=== PATIENT | female | born 2000 | race Caucasian/White ===

== ENCOUNTER 2021-06-23 15:26 | Inpatient (IN) | payer MEDICAID, SELFPAY ==
[2021-06-23 15:59] VITALS: BP 113/73; PULSE 87; RESP 20; TEMP 36.8; O2SAT 95
[2021-06-23 16:03] VITALS: BP 127/83; PULSE 90; RESP 25; O2SAT 95
--- NOTE | 2021-06-23 16:12 | XRR_ITS ---
PROCEDURE INFORMATION: Exam: XR Chest Exam date and time: 06/23/2021 4:12 PM Age: 21 years old Clinical indication: Shortness of breath; Patient HX: History--sob, low oxygen, cough TECHNIQUE: Imaging protocol: XR of the chest. Views: 1 view. COMPARISON: No relevant prior studies available. FINDINGS: Lungs: There are bilateral patchy alveolar opacities worrisome for pulmonary infection. Findings could represent COVID-19 pneumonia. Correlation with appropriate laboratory findings is suggested. There is no pulmonary vascular congestion. Pleural spaces: Unremarkable. No pleural effusion. No pneumothorax. Heart/Mediastinum: Heart is within normal limits of size. Bones/joints: Unremarkable. XR/XR chest 1V portable [id number] IMPRESSION: Bilateral pneumonia with findings worrisome for COVID-19.
[2021-06-23 18:34] LABS: Hematocrit 35.8 % (37.0-47.0); Hemoglobin 12.1 g/dL (11.5-15.3); Mean Corpuscular HGB Conc 33.8 g/dL (30.0-36.0); Mean Corpuscular Hemoglobin 31.3 pg (28.0-34.0); Mean Corpuscular Volume 92.7 fl (81-99); Mean Platelet Volume 11.5 fL (7.4-10.4); Platelet Count 170 10^3/cmm (130-400); Red Blood Count 3.86 10^6/uL (4.1-5.3); White Blood Count 7.4 10^3/uL (4.0-10.0)
--- NOTE | 2021-06-23 18:49 | W.ED.GENADLT ---
HPI - General Adult General: Chief complaint: Shortness of Breath/Dyspnea Stated complaint: SHALLOW BREATHING/LOW PULSE OX Time Seen by Provider: 06/23/21 17:59 History of Present Illness: HPI narrative: Patient is a 21-year-old female with no significant past medical history presents emergency room with cough generalized weakness fatigue and dyspnea x 1 week. She reports that she may be feeling febrile for the last week and was seen by PCP and was given breathing treatment. Patient was noted to be satting 80% on room air and improved to 94% on arrival. Patient has no history of asthma, history of smoking or COPD. Patient denies any cardiac issues or diabetes. Onset:1 week ago Duration:1 week Location:home Severity:moderate Review of Systems Narrative: Constitutional: No fever, no chills. HEENT: No vision changes CV: No chest pain, no palpitations PULM: +cough, +dyspnea. GI: No abdominal pain, no N/V/D. : No dysuria MSKEL: No muscle pain SKIN: No new rashes, no lesions. NEURO: No headache, no focal weakness. HEME: No visible bruises PSYCH: Normal mood PFSH ED PFSH: Family History Grandmother Diabetes Other Cancer Denies family history of Stroke Social History Smoking and tobacco status: never smoked Alcohol intake: never Household members: family Current occupational status: employed Current occupation: [employer] Physical Exam Narrative: EXAM NARRATIVE: Head: Atraumatic Eyes: PERRL, conjunctiva without injection ENT: Mucous membrane moist NECK: Supple, ROM intact LUNGS: +coarse breath sounds b/l CV: RRR ABDOMEN: Soft, nontender in all quadrants EXTREMITY: Normal ROM SKIN: No rash or erythema NEURO: Awake and alert, no focal motor deficits PSYCH: Normal mood and affect Course Vital Signs: Vital signs: Vital Signs Temperature 98.3 F 06/23/21 15:59 Pulse Rate 90 06/23/21 16:03 Respiratory Rate 25 H 06/23/21 16:03 Blood Pressure 127/83 06/23/21 16:03 Pulse Oximetry 89 L 06/23/21 19:25 MDM - General Adult MDM Narrative: Medical decision making narrative: Patient is a 21-year-old female presenting to the emergency room for evaluation of dyspnea and cough generalized weakness x1 week. Patient was satting at 94% on room air for us in the emergency room. No increased work of breathing. +Coarse breath sounds on lung exam. X-rays consistent with bilateral pneumonia concerning for possible Covid pneumonia. Covid swabs are On reassessment, XR findings of ground-glass opacity. Findings consistent with COVID. Afebrile currently. Patient continues to sat at 95% on 5L oxygen. Given concerns for possible respiratory decompensation, I have offered patient admission for serial/close observation in the emergency room. S/p decadron and remdesivir Disposition: Admission for oxygen support and observation Lab Data: Labs: Lab Results 06/23/21 06/23/21 06/23/21 18:30 18:30 19:00 WBC 7.4 10^3/uL 10^3/ uL (4.0-10.0) RBC 3.86 10^6/uL L 10 ^6/uL (4.1-5.3) Hgb 12.1 g/dL g/dL (11.5-15.3) Hct 35.8 % L % (37.0-47.0) MCV 92.7 fl fl (81-99) MCH 31.3 pg pg (28.0-34.0) MCHC 33.8 g/dL g/dL (30.0-36.0) RDW 12.0 % L % (12.1-15.1) Plt Count 170 10^3/cmm 10^3 /cmm (130-400) MPV 11.5 fL H fL (7.4-10.4) Lymph % (Auto) Not Reportable [place] % (Auto) Not Reportable Lymph # (Auto) Not Reportable [place] # (Auto) Not Reportable Total Counted 100 (0-100) Atypical Lymphs % 0.0 % % (0-5) Absolute Neutrophi ls 6.0 10^3/cmm 10^3 /cmm (1.4-6.5) Segmented Neutroph ils 79 % % Abs Segm Neuts (Ma n) 5.8 10/cmm 10/cmm (1.6-7.1) Band Neutrophils 2.0 % % Abs Band Neuts (Ma n) 0.1 10^3/cmm 10^3 /cmm (0.0-1.2) Absolute Lymphocyt es 0.8 10^3/cmm L 10 ^3/cmm (1.2-3.4) Lymphocytes (Manua [place]) 11 % % Monocytes (Manual) 8.0 % % Absolute Monocytes 0.6 10^3/cmm 10^3 /cmm (0.1-0.6) Eosinophils (Man[place]) 0 % % Absolute Eosinophi ls 0.0 10^3/cmm 10^3 /cmm (0.0-0.7) Basophils (Manual) 0.0 % % Absolute Basophils 0.0 10^3/cmm 10^3 /cmm (0.0-0.2) Platelet Estimate Normal (Normal) Sodium 145 mmol/L mmol/L (136-145) Potassium 4.0 mmol/L mmol/L (3.5-5.1) Chloride 110 mmol/L H mmol /L (98-107) Carbon Dioxide 21 mmol/L L mmol/ L (22-29) Anion Gap 18.0 (5-19) BUN 17 mg/dL mg/dL (6-20) Creatinine 0.7 mg/dL mg/dL (0.5-0.9) GFR Calculation 104.6 mL/min mL/m in (90-130) Glucose 114 mg/dL mg/dL (65-115) Calculated Osmolal ity 302 mOsm/kg H mOs m/kg (285-295) Calcium 8.8 mg/dL mg/dL (8.5-10.5) Total Bilirubin 0.3 mg/dL mg/dL (0.15-1.2) AST 54 U/L H U/L (0-32) ALT 51 U/L H U/L (0-33) Alkaline Phosphata se 64 IU/L IU/L (35-105) Total Protein 7.6 g/dL g/dL (6.6-8.7) Albumin 3.7 g/dL g/dL (3.5-5.2) Globulin 3.9 g/dL g/dL (1.3-4.6) SARS-CoV-2 Ag (Rap id) Positive H (Negative) Imaging Data^: Other Imaging: Radiologist's impression: [facility] [address] [id number] ReportSigned Patient: Saran Zavala #: [id number]: 2000Acct#:[id number]/Sex: 21 / FADM Date: 06/23/21Loc: ERRoom/Bed:Attending Dr: Ordering Provider/Ordering MD: Rosa Lee Date of Service: 06/23/21 Procedure(s): XR chest 1V portable [id number] Accession Number(s): [id number] Report Number: [id number] PROCEDURE INFORMATION: Exam: XR Chest Exam date and time: 06/23/2021 4:12 PM Age: 21 years old Clinical indication: Shortness of breath; Patient HX: History--sob, low oxygen, cough TECHNIQUE: Imaging protocol: XR of the chest. Views: 1 view. COMPARISON: No relevant prior studies available. FINDINGS: Lungs: There are bilateral patchy alveolar opacities worrisome for pulmonary infection. Findings could represent COVID-19 pneumonia. Correlation with appropriate laboratory findings is suggested. There is no pulmonary vascular congestion. Pleural spaces: Unremarkable. No pleural effusion. No pneumothorax. Heart/Mediastinum: Heart is within normal limits of size. Bones/joints: Unremarkable. XR/XR chest 1V portable [id number] IMPRESSION: Bilateral pneumonia with findings worrisome for COVID-19. Dictated By:Roosevelt Sebastianigned By:Leighton Sebastian Date/Time:06/23/21 1731DD/ 1612 Discharge Plan Discharge Patient Disposition: Admitted As Inpatient Clinical Impression: Pneumonia, Cough, Malaise, Dyspnea, Generalized weakness, SARS pneumonia Condition: Stable Discharge Diet: Advance as tolerated Discharge Activity: Resume usual activity Coding Level of Care Code ED Accountant Clerk for [facility]
[2021-06-23 19:05] LABS: Absolute Segmented Neutrophil 5.8 10/cmm (1.6-7.1); Band Neutrophils Absolute 0.1 10^3/cmm (0.0-1.2); Eosinophils 0 %; Lymphocytes 11 %; Lymphocytes Absolute 0.8 10^3/cmm (1.2-3.4); Monocytes Absolute 0.6 10^3/cmm (0.1-0.6); Platelet Estimate Normal (Normal); Segmented Neutrophils 79 %; Total Cells Counted 100 (0-100)
[2021-06-23 19:25] VITALS: O2SAT 85; O2SAT 89
[2021-06-23 19:29] LABS: Alanine Aminotransferase 51 U/L (0-33); Albumin Level 3.7 g/dL (3.5-5.2); Alkaline Phosphatase 64 IU/L (35-105); Aspartate Amino Transferase 54 U/L (0-32); Blood Urea Nitrogen 17 mg/dL (6-20); Calcium 8.8 mg/dL (8.5-10.5); Carbon Dioxide 21 mmol/L (22-29); Chloride 110 mmol/L (98-107); Globulin 3.9 g/dL (1.3-4.6); Glomerular Filtration Rate 104.6 mL/min (90-130); Glucose 114 mg/dL (65-115); Osmolality Calculated 302 mOsm/kg (285-295); Sodium 145 mmol/L (136-145); Total Bilirubin 0.3 mg/dL (0.15-1.2); Total Protein 7.6 g/dL (6.6-8.7)
[2021-06-23 19:46] LABS: SARS Covid-2 Antigen Positive (Negative)
[2021-06-23] MEDS: dexamethasone 10 mg/mL INJ 6 MG IVP (20:05)
--- NOTE | 2021-06-23 20:27 | PM.HP ---
Providers/Chief Complaint Admitting Physician: Aura Mills Primary Care Provider: Holly Coronel NP Chief Complaint: SHALLOW BREATHING/LOW PULSE OX History of Present Illness Andrew Zavala is a 21 year old female who presented to the emergency room with difficulty breathing. About a week ago she had sinus pressure and nasal symptoms and was seen by her primary care provider. Diagnosed with a sinus infection and given a course of Augmentin which she completed today. Today her grandmother noted that she had shallow fast breathing and looks short of breath along with nonproductive cough. Was seen again by primary care provider and found to have low oxygen levels and sent to the emergency room for evaluation. On arrival oxygen saturations were in the 80% on room air, initially was only requiring 2 L of oxygen to maintain saturations greater than 92% but subsequently had oxygen saturations 89% at rest on 2 L and was noted to be dropping to 85% with exertion. She is currently requiring 5 L of oxygen by nasal cannula. No report of any fevers. She does continue to have sinus pressure but denies headaches otherwise. Not having the same degree of nasal congestion. No sore throat. No loss of taste or smell. Does have some general fatigue and weakness. She lives at home with her grandparents and her mother. Her mother was tested for Covid today as well, results are unknown. Her grandfather was hospitalized a couple weeks ago with pneumonia but was Covid negative. She has not received Covid vaccination. Laboratory studies thus far show slight elevation in AST and ALT and leukopenia with positive Covid rapid antigen. Review of Systems Const: Reports: fatigue and malaise; Denies: fever(s), chills or body aches Eyes: Denies: blurry vision ENMT: Reports: nasal congestion and sinus pain; Denies: throat pain, hoarseness or other (loss of taste and smell) Card: Reports: dyspnea on exertion and other (Varicose veins to lower extremity); Denies: chest pain, palpitations or lightheadedness Resp: Reports: dyspnea and non-productive cough; Denies: productive cough, wheezing, pain on inspiration, hemoptysis or chest congestion GI: Reports: nausea, vomiting and diarrhea; Denies: abdominal pain : Denies: difficulty voiding Musc: Reports: other (Still wears her AFO brace and compression stockings for her legs/ankle); Denies: joint pain Skin/Breast: Denies: rash Neuro: Denies: headache(s) (Though has sinus pressure) or confusion Papa/Lymph: Denies: easy bruising or easy bleeding Medications/Allergies Home Medications Medication Instructions Recorded Confirmed Last Taken Type No Known Home Medications 06/23/21 06/23/21 Unknown History Allergies Allergy/AdvReac Type Severity Reaction Status Date / Time No Known Allergies Allergy Verified 06/23/21 16:03 Additional Medication Information Not on any chronic medications Completed a course of Augmentin for sinus infection diagnosis today PFSH Acute PFSH: Medical History (Updated 06/23/21 @ 21:35 by Aura Mills MD) Bilateral bunions Flat feet Mild cognitive disorder Posterior tibial tendon dysfunction, left Surgical History (Updated 06/23/21 @ 20:27 by Aura Mills MD) History of tonsillectomy Family History Grandmother Diabetes Other Cancer Denies family history of Stroke Social History (Updated 06/23/21 @ 21:16 by Aura Mills MD) Smoking and tobacco status: never smoked Alcohol intake: never Substance/Drug Use: never Household members: family Current occupation: [employer] Vitals/I&O/Wt Last Vital Signs Temp 98.3 F 06/23/21 15:59 Pulse 90 06/23/21 16:03 Resp 25 H 06/23/21 16:03 BP 127/83 06/23/21 16:03 Pulse Ox 89 L 06/23/21 19:25 Weight last 48 hrs Weight 115.666 kg Physical Exam Narrative: EXAM NARRATIVE: Constitutional: alert, not acutely ill appearing while lying at rest HEENT: normocephalic, atraumatic, extraocular movements are intact, dry membranes Neck: supple Respiratory: No wheezes, rales or rhonchi, mild tachypnea, no retractions Cardiovascular: regular, no murmurs, no acrocyanosis Abdomen: soft, non tender, positive bowel sounds Extremities: no edema, no cyanosis Skin: dry, no rashes or bruising Neuro: face symmetric, speech clear, moves all extremities Psych: cooperative Data : 06/23/21 18:30 06/23/21 18:30 Other Labs: Laboratory Results WBC 7.4 10^3/uL (4.0-10.0) 06/23/21 18:30 RBC 3.86 10^6/uL (4.1-5.3) L 06/23/21 18:30 Hgb 12.1 g/dL (11.5-15.3) 06/23/21 18:30 Hct 35.8 % (37.0-47.0) L 06/23/21 18:30 MCV 92.7 fl (81-99) 06/23/21 18:30 MCH 31.3 pg (28.0-34.0) 06/23/21 18:30 MCHC 33.8 g/dL (30.0-36.0) 06/23/21 18:30 RDW 12.0 % (12.1-15.1) L 06/23/21 18:30 Plt Count 170 10^3/cmm (130-400) 06/23/21 18:30 MPV 11.5 fL (7.4-10.4) H 06/23/21 18:30 Lymph % (Auto) Not Reportable 06/23/21 18:30 [place] % (Auto) Not Reportable 06/23/21 18:30 Lymph # (Auto) Not Reportable 06/23/21 18:30 [place] # (Auto) Not Reportable 06/23/21 18:30 Total Counted 100 (0-100) 06/23/21 18:30 Atypical Lymphs % 0.0 % (0-5) 06/23/21 18:30 Absolute Neutrophils 6.0 10^3/cmm (1.4-6.5) 06/23/21 18:30 Segmented Neutrophils 79 % 06/23/21 18:30 Abs Segm Neuts (Man) 5.8 10/cmm (1.6-7.1) 06/23/21 18:30 Band Neutrophils 2.0 % 06/23/21 18:30 Abs Band Neuts (Man) 0.1 10^3/cmm (0.0-1.2) 06/23/21 18:30 Absolute Lymphocytes 0.8 10^3/cmm (1.2-3.4) L 06/23/21 18:30 Lymphocytes (Manual) 11 % 06/23/21 18:30 Monocytes (Manual) 8.0 % 06/23/21 18:30 Absolute Monocytes 0.6 10^3/cmm (0.1-0.6) 06/23/21 18:30 Eosinophils (Manual) 0 % 06/23/21 18:30 Absolute Eosinophils 0.0 10^3/cmm (0.0-0.7) 06/23/21 18:30 Basophils (Manual) 0.0 % 06/23/21 18:30 Absolute Basophils 0.0 10^3/cmm (0.0-0.2) 06/23/21 18:30 Platelet Estimate Normal (Normal) 06/23/21 18:30 Sodium 145 mmol/L (136-145) 06/23/21 18:30 Potassium 4.0 mmol/L (3.5-5.1) 06/23/21 18:30 Chloride 110 mmol/L (98-107) H 06/23/21 18:30 Carbon Dioxide 21 mmol/L (22-29) L 06/23/21 18:30 Anion Gap 18.0 (5-19) 06/23/21 18:30 BUN 17 mg/dL (6-20) 06/23/21 18:30 Creatinine 0.7 mg/dL (0.5-0.9) 06/23/21 18:30 GFR Calculation 104.6 mL/min (90-130) 06/23/21 18:30 Glucose 114 mg/dL (65-115) 06/23/21 18:30 Calculated Osmolality 302 mOsm/kg (285-295) H 06/23/21 18:30 Calcium 8.8 mg/dL (8.5-10.5) 06/23/21 18:30 Total Bilirubin 0.3 mg/dL (0.15-1.2) 06/23/21 18:30 AST 54 U/L (0-32) H 06/23/21 18:30 ALT 51 U/L (0-33) H 06/23/21 18:30 Alkaline Phosphatase 64 IU/L (35-105) 06/23/21 18:30 Total Protein 7.6 g/dL (6.6-8.7) 06/23/21 18:30 Albumin 3.7 g/dL (3.5-5.2) 06/23/21 18:30 Globulin 3.9 g/dL (1.3-4.6) 06/23/21 18:30 SARS-CoV-2 Ag (Rapid) Positive (Negative) H 06/23/21 19:00 Impressions Chest X-Ray 06/23/21 16:12 IMPRESSION: Bilateral pneumonia with findings worrisome for COVID-19. A&P Assessment and plan (1) Pneumonia due to COVID-19 virus: Status: Acute (2) Hypoxemia: Both at rest and exertional, currently requiring 5 L by nasal cannula Status: Acute (3) Body mass index (BMI) of 36.0 to 36.9: Status: Acute (4) COVID-19 vaccination not done: Status: Acute Additional A&P Information Inpatient admission Initiate dexamethasone and remdesivir Oxygen therapy as needed to maintain saturations Respiratory therapy to follow Flutter device and incentive spirometer Albuterol inhalers Check baseline inflammatory markers/labs and monitor Blood cultures ordered Vitamin C, vitamin D, zinc Lovenox for DVT prophylaxis Supportive care otherwise Currently anticipate discharge home, possibly with oxygen therapy, however it will ultimately depend on clinical course Findings, concerns and plans, including treatment with Remdesivir were discussed with patient and her grandmother, both were given an opportunity to ask questions which were answered Full code Attestations Medical Necessity Statement*: Anticipate stay greater than 2 midnights in patient with covid, requiring 5 L of oxygen currently to maintain saturations and other care as noted above. Primary risk factor for severe disease is BMI of 36. Baseline inflammatory markers are still pending but given significant oxygen requirement at high risk of potential rapid clinical decline without initiation of treatment and close monitoring initially in the inpatient setting. Coding Level of Care Code Acute Transportation Officer for [facility] Fwd Diagnoses Pneumonia due to COVID-19 virus U07.1; J12.82 Hypoxemia R09.02 Body mass index (BMI) of 36.0 to 36.9 Z68.36 COVID-19 vaccination not done Z28.9
[2021-06-23 21:03] VITALS: BP 132/84; PULSE 74; RESP 32; O2SAT 95
[2021-06-23 21:28] LABS: INR 1.08 (0.8-1.2); Lactic Sepsis W/Reflex 1.4 mmol/L (0.5-2.2)
[2021-06-23 21:29] LABS: Fibrinogen 591 mg/dL (174-498); Partial Thromboplastin Time 33.6 SECONDS (23.9-36.7)
[2021-06-23 21:32] LABS: D Dimer 0.86 ug/mIFEU (0-0.59)
[2021-06-23 21:43] LABS: Troponin T (5th) Once 13 ng/L (0-10)
[2021-06-23 21:50] LABS: NT Pro B Type Natriuretic Pept 214 pg/mL (0-125); Procalcitonin 0.07 ng/mL (0-0.5)
[2021-06-23 22:01] LABS: C Reactive Protein 53.8 mg/L (0.0-4.9); Creatine Phosphokinase 104 U/L (26-192); Lactate Dehydrogenase 436 U/L (135-214)
--- NOTE | 2021-06-23 22:42 | CTR_ITS ---
PROCEDURE INFORMATION: Exam: CTA Chest With Contrast Exam date and time: 06/23/2021 10:42 PM Age: 21 years old Clinical indication: Abnormal findings; Abnormal diagnostic tests; Elevated d-dimer; Shortness of breath; Additional info: Covid elevated ddimer, hypoxemia TECHNIQUE: Imaging protocol: Computed tomographic angiography of the chest with contrast. 3D rendering (Not supervised by radiologist): MIP and/or 3D reconstructed images were created by the technologist. Radiation optimization: All CT scans at this facility use at least one of these dose optimization techniques: automated exposure control; mA and/or kV adjustment per patient size (includes targeted exams where dose is matched to clinical indication); or iterative reconstruction. Contrast material: OMNI 350; Contrast volume: 78 ml; Contrast route: INTRAVENOUS (IV); COMPARISON: CR XR chest 1V portable [id number] 06/23/2021 4:30 PM RADIATION DOSE METRICS: Total DLP (mGy-cm): 549.6 FINDINGS: Pulmonary arteries: There is no evidence of filling defects within the pulmonary arterial circulation to suggest pulmonary embolism. Aorta: There is no thoracic aortic aneurysm or dissection. Lungs: There are extensive ground-glass opacities in both lungs mostly peripheral and rounded fairly typical in appearance and distribution for COVID-19 infection. There also some areas of consolidation within the ground-glass opacities. Pleural spaces: Unremarkable. No pneumothorax. No pleural effusion. Heart: There is a small amount of fluid in the superior pericardial recess. Lymph nodes: There is no evidence of lymphadenopathy. Bones/joints: Unremarkable. No acute fracture. Soft tissues: Unremarkable. CT/CT angio chest PE protcl [id number] IMPRESSION: 1. Commonly reported imaging features of COVID-19 pneumonia are present. Other processes such as influenza pneumonia and organizing pneumonia, as can be seen with drug toxicity and connective tissue disease, can cause a similar imaging pattern. 2. No evidence of pulmonary embolism.
[2021-06-23] MEDS: remdesivir 200 MG in sodium chloride 0.9% (100 ml) 60 ML 100 MG IV (23:00)
[2021-06-23 23:08] LABS: Ferritin 390 ng/mL (15-150)
[2021-06-23 23:33] LABS: HCG, Serum Qual Negative (Negative)
[2021-06-24] VITALS (10 sets, daily range): BP systolic 107–132; BP diastolic 65–84; PULSE 68–78; RESP 18–28; TEMP 36.4–37.3; O2SAT 92–96
[2021-06-24] MEDS: iohexol 350 mg/mL 100 mL Btl IV (00:21)
[2021-06-24] MEDS: enoxaparin 40 mg/0.4 mL Syringe SUBCUT (04:00)
[2021-06-24 04:19] LABS: Hematocrit 34.4 % (37.0-47.0); Lymphocytes # 0.5 10^3/uL (0.8-4.8); Lymphocytes % 15.3 %; Mean Corpuscular Hemoglobin 30.1 pg (28.0-34.0); Mean Platelet Volume 11.3 fL (7.4-10.4); Monocytes # 0.2 10^3/uL (0.2-0.9); Monocytes % 5.1 %; Neutrophils # 2.76 10^3/uL (1.8-7.7); Neutrophils % 77.9 %; Nucleated Red Blood Cells % 0 %; Platelet Count 170 10^3/cmm (130-400); Red Blood Count 3.66 10^6/uL (4.1-5.3); Red Cell Distribution Width 11.9 % (12.1-15.1); White Blood Count 3.5 10^3/uL (4.0-10.0)
[2021-06-24 04:21] LABS: Influenza A by IFA Negative (Negative); Influenza B by IFA Negative (Negative)
[2021-06-24 04:28] LABS: C Reactive Protein 59.6 mg/L (0.0-4.9); Lactate Dehydrogenase 409 U/L (135-214); Troponin T (5th) Once 9 ng/L (0-10)
[2021-06-24 04:29] LABS: Alanine Aminotransferase 48 U/L (0-33); Albumin Level 3.3 g/dL (3.5-5.2); Alkaline Phosphatase 46 IU/L (35-105); Anion Gap 17.4 (5-19); Aspartate Amino Transferase 37 U/L (0-32); Blood Urea Nitrogen 19 mg/dL (6-20); Calcium 8.7 mg/dL (8.5-10.5); Carbon Dioxide 20 mmol/L (22-29); Chloride 112 mmol/L (98-107); Globulin 3.5 g/dL (1.3-4.6); Glucose 161 mg/dL (65-115); Magnesium 2.1 mg/dL (1.7-2.3); Osmolality Calculated 306 mOsm/kg (285-295); Phosphorus 2.9 mg/dL (2.5-4.5); Potassium 4.4 mmol/L (3.5-5.1); Sodium 145 mmol/L (136-145); Total Bilirubin 0.2 mg/dL (0.15-1.2); Total Protein 6.8 g/dL (6.6-8.7)
[2021-06-24 04:46] LABS: Fibrinogen 594 mg/dL (174-498)
[2021-06-24] MEDS: cholecalciferol (vitamin D3) 1,000 unit Tablet 2000 UNIT PO (10:15)
[2021-06-24] MEDS: levofloxacin-dextrose 5 % 750 MG/150 ML PREMIX 100 MG IV (12:04)
[2021-06-24] MEDS: zinc gluconate 50 mg Tablet PO (12:06)
[2021-06-24] MEDS: ascorbic acid 500 mg Tablet 1000 MG PO ×2 (12:07→17:22)
[2021-06-24 14:19] LABS: Coronavirus Test Green County Detected
--- NOTE | 2021-06-24 15:38 | P.PN_ITS ---
Subjective Subjective: Interval history: Seen today in presence of her grandma. Patient and grandma were earlier requesting to go home but after ER discussed with them they decided to stay due to patient desaturating at rest. She has been on 4-5L in ER since admission and was not on any O2 prior. SHe is not vaccinated. Her mother has also been diagnosed with COVID. Grandma has requested to stay here with her. Patient states she feels ok for now but is little bit short of breath. Vitals/I&O/Wt Last Vital Signs Temp 97.5 F L 06/24/21 15:35 Pulse 72 06/24/21 15:35 Resp 21 H 06/24/21 15:35 BP 107/65 06/24/21 15:35 Pulse Ox 93 06/24/21 15:35 06/24/21 06/24/21 06/24/21 06:59 14:59 22:59 Intake Total 60 / 60 150 / 150 Output Total 700 / 700 Balance 60 / 60 150 / 150 -700 / -550 Weight last 48 hrs Weight 116.981 kg Weight 115.666 kg Physical Exam Narrative: EXAM NARRATIVE: General: Alert oriented x3, patient seen at bedside in ER room 7. HEENT: Normocephalic, atraumatic, EOMI, breathing 5L NC at this time, normal respiratory effort. Cardio: Regular rate rhythm, normal S1-S2, no murmurs rubs gallops, Respiratory: Good bilateral air entry, no wheezes no rhonchi appreciated. Lungs very clear to auscultation. GI: Abdomen soft, nontender, nondistended, bowel sounds + Behavior: Appropriate and cooperative Extremities: no edema, no cyanosis Data : 06/24/21 03:51 06/24/21 03:51 Micro: Microbiology 06/23/21 22:01 Blood Culture - Preliminary Blood SPECIMEN COLLECTED 06/23/21 21:58 Blood Culture - Preliminary Blood SPECIMEN COLLECTED A&P Assessment and plan (1) Pneumonia due to COVID-19 virus: Status: Acute (2) Hypoxemia: Both at rest and exertional, currently requiring 5 L by nasal cannula Status: Acute (3) Body mass index (BMI) of 36.0 to 36.9: Status: Acute (4) COVID-19 vaccination not done: Status: Acute Additional A&P Information #COVID 19 PNA, oxygen dependent Continue dexamethasone and remdesivir Continue O2 therapy Incentive spirometer Flutter valve If needed can escalate to high flow NC/bipap. Respiratory therapy to follow. COVID 19 PCR positive, rapid antigen positive as well. Duoneb q4 hours BCx ordered, pending results Vitamin C, Vitamin D, zinc ordered Dimer 0.86. PE ruled out. Ferritin 390 Lovenox for DVT prophylaxis Supportive care otherwise Full Code Grandma will be allowed to visit due to patient's mild intellectual disability (this was discussed by admitting physician with grandma at admission). Attestations Medical Necessity Statement*: > 48 hour stay Coding Level of Care Code Acute Bankruptcy Processor for [facility] Fwd Diagnoses Pneumonia due to COVID-19 virus U07.1; J12.82 Hypoxemia R09.02 Body mass index (BMI) of 36.0 to 36.9 Z68.36 COVID-19 vaccination not done Z28.9
[2021-06-24] MEDS: benzonatate 100 mg Capsule PO (17:27)
[2021-06-24] MEDS: dexamethasone 4 mg/mL INJ 6 MG IVP (21:13)
--- NOTE | 2021-06-24 21:23 | PC.NURSE ---
Shift report received from Sheila BREWER. Patient in bed/ denies pain/discomfort or SOB. Grandmother Bev at bedside. O2 5L NC. No needs voiced at this time. Pharmacy notified at 2114 that Remdesivir not on unit.
[2021-06-24] MEDS: remdesivir 100 MG in sodium chloride 0.9% (100 ml) 100 ML IV (22:20)
[2021-06-25] VITALS (8 sets, daily range): BP systolic 110–129; BP diastolic 64–82; PULSE 66–95; RESP 16–19; TEMP 36.4–37.1; O2SAT 91–97
[2021-06-25] MEDS: enoxaparin 40 mg/0.4 mL Syringe SUBCUT ×2 (00:09→23:31)
[2021-06-25 03:55] LABS: ABG PCO2 34.5 mmHg (35-45); ABG PH Result 7.46 (7.35-7.45); Alveolar-Arterial Oxygen Gradi 2.7 mmHg (5-10); Arterial Blood Gas Hematocrit 36.6 % (37-47); Base Excess ABG 0.8 mmol/L (-2.0-2.0); Blood Gas Allen Test Pos; Blood Gas Sample Site Radial, right; Blood Gas Sample Type Arterial; Carboxyhemoglobin 0.4 %THgb (0.4-20.1); HCO3 ABG 24.4 mmol/L (22-26); HGB O2 Sat 95.5 % (95-100); Ionized Calcium Level - ABG 1.3 mmol/L (1.1-1.4); Methemoglobin 0.3 % (0.4-1.5); Oxygen Device NC; Oxygen Saturation ABG 96.2; PO2 ABG 85.2 mmHg (80.0-100.0); Potassium Level - ABG 3.9 mmol/L (3.5-5.0); Total Hemoglobin 11.9 g/dL (12-16)
[2021-06-25 06:21] LABS: Basophils % 0.2 %; Hematocrit 35.6 % (37.0-47.0); Hemoglobin 11.5 g/dL (11.5-15.3); Lymphocytes # 1.3 10^3/uL (0.8-4.8); Lymphocytes % 12.5 %; Mean Corpuscular HGB Conc 32.3 g/dL (30.0-36.0); Mean Corpuscular Hemoglobin 30.1 pg (28.0-34.0); Mean Corpuscular Volume 93.2 fl (81-99); Monocytes # 0.4 10^3/uL (0.2-0.9); Monocytes % 4.1 %; Neutrophils # 8.48 10^3/uL (1.8-7.7); Neutrophils % 81.7 %; Nucleated Red Blood Cells % 0 %; Platelet Count 261 10^3/cmm (130-400); Red Blood Count 3.82 10^6/uL (4.1-5.3); Red Cell Distribution Width 11.9 % (12.1-15.1); White Blood Count 10.4 10^3/uL (4.0-10.0)
[2021-06-25 06:36] LABS: Anion Gap 17.1 (5-19); Blood Urea Nitrogen 23 mg/dL (6-20); Calcium 8.3 mg/dL (8.5-10.5); Carbon Dioxide 20 mmol/L (22-29); Chloride 111 mmol/L (98-107); Glomerular Filtration Rate 154.3 mL/min (90-130); Glucose 139 mg/dL (65-115); Magnesium 2.1 mg/dL (1.7-2.3); Osmolality Calculated 304 mOsm/kg (285-295); Potassium 4.1 mmol/L (3.5-5.1); Sodium 144 mmol/L (136-145)
[2021-06-25 07:09] LABS: Slide Review Slide Review Perform
[2021-06-25] MEDS: cholecalciferol (vitamin D3) 1,000 unit Tablet 2000 UNIT PO (09:31)
[2021-06-25] MEDS: zinc gluconate 50 mg Tablet PO (09:32)
[2021-06-25] MEDS: ascorbic acid 500 mg Tablet 1000 MG PO ×2 (09:32→18:37)
[2021-06-25 12:00] LABS: Erythrocyte Sedimentation Rate 34 mm/hr (0-15)
--- NOTE | 2021-06-25 12:00 | PM.PN ---
Subjective Subjective: Interval history: Seen this morning. She states she feels a little bit better but does get short of breath when she walks. She is still on 5 L nasal cannula. Grandmother present at bedside. She has been using incentive spirometer and flutter valve as directed. Vitals/I&O/Wt Last Vital Signs Temp 98.7 F 06/25/21 11:38 Pulse 78 06/25/21 11:38 Resp 17 06/25/21 11:38 BP 110/74 06/25/21 11:38 Pulse Ox 97 06/25/21 11:38 06/24/21 06/25/21 06/25/21 22:59 06:59 14:59 Intake Total 480 / 630 600 / 1230 480 / 480 Output Total 700 / 700 Balance -220 / -70 600 / 530 480 / 480 Weight last 48 hrs Weight 116.981 kg Weight 115.666 kg Physical Exam Narrative: EXAM NARRATIVE: General: Alert oriented x3, patient seen at bedside with grandmother present at bedside. HEENT: Normocephalic, atraumatic, EOMI, breathing 5L NC at this time, normal respiratory effort. Cardio: Regular rate rhythm, normal S1-S2, no murmurs rubs gallops, Respiratory: Good bilateral air entry, no wheezes no rhonchi appreciated. Lungs very clear to auscultation. GI: Abdomen soft, nontender, nondistended, bowel sounds + Behavior: Appropriate and cooperative Extremities: no edema, no cyanosis Data : 06/25/21 05:37 06/25/21 05:37 Micro: Microbiology 06/23/21 22:01 Blood Culture - Preliminary Blood NEGATIVE TO DATE 06/23/21 21:58 Blood Culture - Preliminary Blood NEGATIVE TO DATE A&P Assessment and plan (1) Pneumonia due to COVID-19 virus: Status: Acute (2) Hypoxemia: Status: Acute (3) Body mass index (BMI) of 36.0 to 36.9: Status: Acute (4) COVID-19 vaccination not done: Status: Acute Additional A&P Information #COVID 19 PNA, oxygen dependent Continue dexamethasone and remdesivir Continue O2 therapy Incentive spirometer Flutter valve If needed can escalate to high flow NC/bipap. Respiratory therapy to follow. COVID 19 PCR positive, rapid antigen positive as well. Duoneb q4 hours BCx ordered, pending results Vitamin C, Vitamin D, zinc ordered Dimer 0.86. PE ruled out. Ferritin 390 I have told the patient that we will monitor in the hospital for another 48 hours at least to see which direction she is having. If she consistently stays on 5 L nasal cannula for another 2 days we can potentially discharge her home on oxygen. She is agreeable. Lovenox for DVT prophylaxis Supportive care otherwise Full Code Grandma will be allowed to visit due to patient's mild intellectual disability (this was discussed by admitting physician with grandma at admission). Attestations Medical Necessity Statement*: > 48 hours Coding Level of Care Code Acute Cleaning Specialist for [facility] Fwd Diagnoses Pneumonia due to COVID-19 virus U07.1; J12.82 Hypoxemia R09.02 Body mass index (BMI) of 36.0 to 36.9 Z68.36 COVID-19 vaccination not done Z28.9
[2021-06-25] MEDS: levofloxacin-dextrose 5 % 750 MG/150 ML PREMIX 100 MG IV (13:15)
[2021-06-25] MEDS: remdesivir 100 MG in sodium chloride 0.9% (100 ml) 100 ML IV (18:38)
[2021-06-25] MEDS: dexamethasone 4 mg/mL INJ 6 MG IVP (19:28)
--- NOTE | 2021-06-25 19:49 | PC.NURSE ---
Shift report received from Sheila BREWER. Patient awake in bed. Denies pain or discomfort. O2 5L NC. IV patent/SL. Assisted to BR and educated to call staff when ready. No other needs noted at this timel
[2021-06-26] VITALS (8 sets, daily range): BP systolic 118–137; BP diastolic 55–81; PULSE 67–94; RESP 16–19; TEMP 36.3–37.2; O2SAT 94–98
--- NOTE | 2021-06-26 01:46 | PC.NURSE ---
patient resting at this time/ no s/s of pain or discomfort
--- NOTE | 2021-06-26 05:37 | PC.NURSE ---
Patient in bed sleeping. No s/s of pain or discomfort. No needs noted at this time.
[2021-06-26 05:45] LABS: Basophils % 0.1 %; Hematocrit 35.4 % (37.0-47.0); Hemoglobin 11.7 g/dL (11.5-15.3); Lymphocytes # 1.1 10^3/uL (0.8-4.8); Lymphocytes % 11.6 %; Mean Corpuscular HGB Conc 33.1 g/dL (30.0-36.0); Mean Corpuscular Volume 93.7 fl (81-99); Mean Platelet Volume 10.5 fL (7.4-10.4); Monocytes # 0.5 10^3/uL (0.2-0.9); Monocytes % 5.5 %; Neutrophils # 7.73 10^3/uL (1.8-7.7); Neutrophils % 80.4 %; Nucleated Red Blood Cells % 0 %; Platelet Count 276 10^3/cmm (130-400); Red Blood Count 3.78 10^6/uL (4.1-5.3); Red Cell Distribution Width 11.7 % (12.1-15.1); White Blood Count 9.6 10^3/uL (4.0-10.0)
[2021-06-26 06:19] LABS: Anion Gap 10.7 (5-19); Blood Urea Nitrogen 20 mg/dL (6-20); Calcium 8.4 mg/dL (8.5-10.5); Carbon Dioxide 27 mmol/L (22-29); Chloride 111 mmol/L (98-107); Glucose 144 mg/dL (65-115); Magnesium 2.2 mg/dL (1.7-2.3); Osmolality Calculated 303 mOsm/kg (285-295); Potassium 4.7 mmol/L (3.5-5.1); Sodium 144 mmol/L (136-145)
[2021-06-26 07:01] LABS: Slide Review Slide Review Perform
[2021-06-26] MEDS: ascorbic acid 500 mg Tablet 1000 MG PO ×2 (09:25→18:40)
[2021-06-26] MEDS: zinc gluconate 50 mg Tablet PO (09:25)
[2021-06-26] MEDS: cholecalciferol (vitamin D3) 1,000 unit Tablet 2000 UNIT PO (09:25)
[2021-06-26] MEDS: levofloxacin-dextrose 5 % 750 MG/150 ML PREMIX 100 MG IV (11:57)
--- NOTE | 2021-06-26 13:54 | P.PN_ITS ---
Subjective Subjective: Interval history: Patient states that she feels better and when she walks she is less short of breath compared to yesterday. Overall she is improving. Not quite back to baseline yet. She is now on 4 L nasal cannula. Saturating 95 to 96%. No acute events overnight. She offers no complaints this morning. Vitals/I&O/Wt Last Vital Signs Temp 97.6 F 06/26/21 12:00 Pulse 94 06/26/21 12:00 Resp 18 06/26/21 12:00 BP 118/77 06/26/21 12:00 Pulse Ox 96 06/26/21 12:00 06/25/21 06/26/21 06/26/21 22:59 06:59 14:59 Intake Total 730 / 1690 1110 / 1110 Output Total 400 / 400 Balance 330 / 1290 1110 / 1110 Weight last 48 hrs Weight 116.981 kg Physical Exam Narrative: EXAM NARRATIVE: General: Alert oriented x3, patient seen at bedside HEENT: Normocephalic, atraumatic, EOMI, breathing 4L NC at this time, normal respiratory effort. Cardio: Regular rate rhythm, normal S1-S2, no murmurs rubs gallops, Respiratory: Good bilateral air entry, no wheezes no rhonchi appreciated. Lungs very clear to auscultation. GI: Abdomen soft, nontender, nondistended, bowel sounds + Behavior: Appropriate and cooperative Extremities: no edema, no cyanosis Data : 06/26/21 05:31 06/26/21 05:31 A&P Assessment and plan (1) Pneumonia due to COVID-19 virus: Status: Acute (2) Hypoxemia: Both at rest and exertional, currently requiring 5 L by nasal cannula Status: Acute (3) Body mass index (BMI) of 36.0 to 36.9: Status: Acute (4) COVID-19 vaccination not done: Status: Acute Additional A&P Information #COVID 19 PNA, oxygen dependent Continue dexamethasone and remdesivir Continue O2 therapy Incentive spirometer Flutter valve If needed can escalate to high flow NC/bipap. Respiratory therapy to follow. COVID 19 PCR positive, rapid antigen positive as well. Duoneb q4 hours BCx ordered, pending results Vitamin C, Vitamin D, zinc ordered Dimer 0.86. PE ruled out. Ferritin 390 Oxygen down to 4 L nasal cannula today. Further plan is to do home oxygen evaluation tomorrow and see how much she requires. At that point we will determine if she will be allowed to go home or not. We will continue to monitor patient in the hospital. We will continue dexamethasone remdesivir for now. Lovenox for DVT prophylaxis Supportive care otherwise Full Code Tigre will be allowed to visit due to patient's mild intellectual disability (this was discussed by admitting physician with tigre at admission). Attestations Medical Necessity Statement*: Greater than 24-hour stay. Possible potential discharge in a.m. but that might change depending on patient's oxygen status. 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
[2021-06-26] MEDS: dexamethasone 4 mg/mL INJ 6 MG IVP (18:39)
[2021-06-26] MEDS: remdesivir 100 MG in sodium chloride 0.9% (100 ml) 100 ML IV (18:40)
--- NOTE | 2021-06-26 20:09 | PC.NURSE ---
Shift report received from Kymberly BREWER. Patient in bed/ awake. Denies pain or discomfort. 4L NC. IV patent and infusing Remdesivir at this time. No needs voiced at this time.
[2021-06-27] VITALS: BP 124/74; PULSE 83; RESP 17; TEMP 37.1; O2SAT 97
[2021-06-27] MEDS: enoxaparin 40 mg/0.4 mL Syringe SUBCUT (01:08)
[2021-06-27 04:00] VITALS: BP 116/74; PULSE 72; RESP 18; TEMP 37.2; O2SAT 93
[2021-06-27 06:39] LABS: Basophils % 0.3 %; Hematocrit 37.2 % (37.0-47.0); Lymphocytes # 1.3 10^3/uL (0.8-4.8); Lymphocytes % 12.7 %; Mean Corpuscular HGB Conc 32.3 g/dL (30.0-36.0); Mean Corpuscular Hemoglobin 30.5 pg (28.0-34.0); Mean Corpuscular Volume 94.4 fl (81-99); Mean Platelet Volume 10.8 fL (7.4-10.4); Monocytes # 0.7 10^3/uL (0.2-0.9); Monocytes % 6.4 %; Neutrophils # 7.81 10^3/uL (1.8-7.7); Neutrophils % 76.6 %; Nucleated Red Blood Cells % 0 %; Platelet Count 329 10^3/cmm (130-400); Red Blood Count 3.94 10^6/uL (4.1-5.3); Red Cell Distribution Width 11.7 % (12.1-15.1); White Blood Count 10.2 10^3/uL (4.0-10.0)
[2021-06-27 07:11] LABS: Anion Gap 10.3 (5-19); Blood Urea Nitrogen 19 mg/dL (6-20); Calcium 8.1 mg/dL (8.5-10.5); Carbon Dioxide 27 mmol/L (22-29); Chloride 111 mmol/L (98-107); Glomerular Filtration Rate 154.3 mL/min (90-130); Glucose 113 mg/dL (65-115); Magnesium 2.3 mg/dL (1.7-2.3); Osmolality Calculated 301 mOsm/kg (285-295); Potassium 4.3 mmol/L (3.5-5.1); Sodium 144 mmol/L (136-145)
[2021-06-27 07:54] VITALS: BP 143/85; PULSE 75; RESP 18; TEMP 36.4; O2SAT 95
[2021-06-27] MEDS: zinc gluconate 50 mg Tablet PO (09:01)
[2021-06-27] MEDS: cholecalciferol (vitamin D3) 1,000 unit Tablet 2000 UNIT PO (09:01)
[2021-06-27] MEDS: ascorbic acid 500 mg Tablet 1000 MG PO (09:01)
--- NOTE | 2021-06-27 11:45 | PM.DCS ---
Discharge Providers Date of Admission: 06/24/21 05:57 Date of Discharge: June 27, 2021 Attending Provider at Admission: Aura Mills MD Attending Provider at Discharge: Glendy Loomis MD Primary Care Provider: Holly Coronel NP Diagnoses at Discharge Discharge Diagnosis (1) Pneumonia due to COVID-19 virus: Status: Acute (2) Hypoxemia: Status: Acute (3) Body mass index (BMI) of 36.0 to 36.9: Status: Acute (4) COVID-19 vaccination not done: Status: Acute Reason for Visit Reason for Visit: SHALLOW BREATHING/LOW PULSE OX Hospital Course Hospital Course HPI as per Dr. Mills Andrew Zavala is a 21 year old female who presented to the emergency room with difficulty breathing. About a week ago she had sinus pressure and nasal symptoms and was seen by her primary care provider. Diagnosed with a sinus infection and given a course of Augmentin which she completed today. Today her grandmother noted that she had shallow fast breathing and looks short of breath along with nonproductive cough. Was seen again by primary care provider and found to have low oxygen levels and sent to the emergency room for evaluation. On arrival oxygen saturations were in the 80% on room air, initially was only requiring 2 L of oxygen to maintain saturations greater than 92% but subsequently had oxygen saturations 89% at rest on 2 L and was noted to be dropping to 85% with exertion. She is currently requiring 5 L of oxygen by nasal cannula. No report of any fevers. She does continue to have sinus pressure but denies headaches otherwise. Not having the same degree of nasal congestion. No sore throat. No loss of taste or smell. Does have some general fatigue and weakness. She lives at home with her grandparents and her mother. Her mother was tested for Covid today as well, results are unknown. Her grandfather was hospitalized a couple weeks ago with pneumonia but was Covid negative. She has not received Covid vaccination. Laboratory studies thus far show slight elevation in AST and ALT and leukopenia with positive Covid rapid antigen. Course: Patient admitted for covid 19 pneumonia. She was given remdesivir and dexamethasone while inpatient. Patient improved over next few days and discharged home in stable condition on home oxygen. She was encouraged to use incentive spirometer and flutter valve. Please see last progress note for more details. Physical Exam Narrative: EXAM NARRATIVE: General: Alert oriented x3, patient seen at bedside HEENT: Normocephalic, atraumatic, EOMI, breathing 3L NC at this time, normal respiratory effort. Cardio: Regular rate rhythm, normal S1-S2, no murmurs rubs gallops, Respiratory: Good bilateral air entry, no wheezes no rhonchi appreciated. Lungs very clear to auscultation. GI: Abdomen soft, nontender, nondistended, bowel sounds + Behavior: Appropriate and cooperative Extremities: no edema, no cyanosis Discharge Data Data Completed and Pending: Completed Studies During Hospitalization Category Date Time Status CT angio chest PE protcl [id number] Rout ine Cat Scan 06/23/21 22:42 Completed XR chest 1V [place]y ble [id number] Urgent Exams 06/23/21 16:12 Completed Pending at discharge Category Date Time Status Blood Culture Sta t Lab 06/23/21 22:01 Results Labs from last 24 hours 06/27/21 06/27/21 05:55 05:55 WBC 10.2 H RBC 3.94 L Hgb 12.0 Hct 37.2 MCV 94.4 MCH 30.5 MCHC 32.3 RDW 11.7 L Plt Count 329 MPV 10.8 H Neut % (Auto) 76.6 Lymph % (Auto) 12.7 [place] % (Auto) 6.4 Eos % (Auto) 0.0 Baso % (Auto) 0.3 Neut # (Auto) 7.81 H Lymph # (Auto) 1.3 [place] # (Auto) 0.7 Eos # (Auto) 0.0 Baso # (Auto) 0.0 Nucleated RBC % (a uto) 0 Nucleated RBCs # 0.0 Sodium 144 Potassium 4.3 Chloride 111 H Carbon Dioxide 27 Anion Gap 10.3 BUN 19 Creatinine 0.5 GFR Calculation 154.3 H Glucose 113 Calculated Osmolal ity 301 H Calcium 8.1 L Magnesium 2.3 Vitals: Last Vital Signs Temp 97.5 F L 06/27/21 07:54 Pulse 75 06/27/21 07:54 Resp 18 06/27/21 07:54 BP 143/85 06/27/21 07:54 Pulse Ox 95 06/27/21 07:54 Discharge Plan Discharge Patient Disposition: Home Condition: Stable Prescriptions: New benzonatate 100 mg Capsule 100 mg PO TID PRN (Reason: Cough) 14 Days Qty: 30 RF: 0 Ventolin HFA 90 mcg/actuation Hfa Aerosol Inhaler 2 puff inhalation Q4H PRN (Reason: Shortness Of Breath) 14 Days Qty: 8.5 RF: 0 Discharge Orders: Discharge Order (Routine); Ordered 06/27/21 Ordered By: Glendy Loomis Other Ambulatory Orders: DME: Oxygen (Order) Location: None Selected Ordered By: Nadine Rebollar Referrals: Holly Coronel NP [Primary Care Provider] - 07/07/21 11:00 am Discharge Diet: Regular Discharge Activity: Resume usual activity, Increase activity as tolerated and Oxygen as instructed Patient Instructions: Benzonatate (By mouth), Albuterol (By breathing), Prednisone (By mouth), Levofloxacin (By mouth) (Levaquin, Levaquin Leva-hugo), Using Oxygen at Home (DC), Acute Cough (ED), COVID-19 (Coronavirus Disease 2019) (ED), Opioid Safety Activity Restrictions/Additional Instructions: Come back to the emergency room if your symptoms worsen, have any shortness of breath, fever/chills, dehydration, inability tolerate p.o., any difficulty breathing, or any new or concerning complaints. Please return the emergency room if your pulse ox reads less than 88%. Discharge Attestations Time Spent in Discharge Care*: less than 30 min Quality Metrics Clinical Quality Measures During this hospital stay, did patient experience: None Coding Level of Care Code Acute Chg FW DC note Diagnoses Pneumonia due to COVID-19 virus U07.1; J12.82 Hypoxemia R09.02 Body mass index (BMI) of 36.0 to 36.9 Z68.36 COVID-19 vaccination not done Z28.9
[2021-06-27 11:46] VITALS: O2SAT 86; O2SAT 91
[2021-06-27 11:47] VITALS: PULSE 84; RESP 18; O2SAT 91
[2021-06-27 12:00] VITALS: BP 136/80; PULSE 98; RESP 18; TEMP 36.4; O2SAT 97
[2021-06-27] MEDS: levofloxacin-dextrose 5 % 750 MG/150 ML PREMIX 100 MG IV (12:17)
--- NOTE | 2021-06-27 13:28 | PC.NURSE ---
Medications called into [facility] in [place] per Grandmother, Bev, and cancelled from [facility]. Patient has mild cognitive impairment and discharge instructions were reviewed with Grandmother, Bev via phone and she verbalized understanding.
== END 2021-06-27 14:06 | disposition home or self-care (01) | DRG 177 ==
LOC: ER 20:54 → ER IP 06-24 08:30 → MEDSURG 06-24 14:21
PROVIDERS: Physician Assistant; Admitting Provider Hospitalist; Emergency Provider Emergency Medicine; PCP Nurse Practitioner Family; Visit Provider Internal Medicine
DX: U07.1 COVID-19 (principal); J12.82 Pneumonia due to coronavirus disease 2019; R09.02 Hypoxemia; F70 Mild intellectual disabilities; Z68.36 Body mass index [BMI] 36.0-36.9, adult
CPT/HCPCS: 36415; 36600; 71045; 71275; 80048; 80051; 80053; 82330; 82550; 82728; 82805; 83605; 83615; 83735; 83880; 84100; 84145; 84484; 84703; 85007; 85025; 85378; 85384; 85610; 85651; 85730; 86140; 87040; 87426; 87635; 87804; 94664; 96365; 96372; 96375; 99285; J1100; J1650; J1956; Q9967

== ENCOUNTER → 2022-09-09 10:18 | Outpatient (BNVA) | payer MEDICAID, SELFPAY | PROVIDERS: PCP Nurse Practitioner Family; Visit Provider Podiatrist Foot & Ankle Surgery | DX: Q82.8 Other specified congenital malformations of skin (principal); M21.611 Bunion of right foot; M21.612 Bunion of left foot; M21.41 Flat foot [pes planus] (acquired), right foot; M21.42 Flat foot [pes planus] (acquired), left foot | CPT/HCPCS: 17110 ==

== ENCOUNTER → 2022-10-19 09:54 | Outpatient (BNVA) | payer MEDICAID, SELFPAY | PROVIDERS: PCP Nurse Practitioner Family; Visit Provider Podiatrist Foot & Ankle Surgery | DX: Q82.8 Other specified congenital malformations of skin (principal); M21.611 Bunion of right foot; M21.612 Bunion of left foot; M21.41 Flat foot [pes planus] (acquired), right foot; M21.42 Flat foot [pes planus] (acquired), left foot; B07.0 Plantar wart; M25.372 Other instability, left ankle; M76.822 Posterior tibial tendinitis, left leg | CPT/HCPCS: 17110; 99213 ==

== ENCOUNTER → 2022-11-26 13:47 | Outpatient (BNVA) | payer MEDICAID, SELFPAY | PROVIDERS: PCP Nurse Practitioner Family; Visit Provider Podiatrist Foot & Ankle Surgery | DX: M21.611 Bunion of right foot (principal); M21.612 Bunion of left foot; M21.41 Flat foot [pes planus] (acquired), right foot; M21.42 Flat foot [pes planus] (acquired), left foot; M25.372 Other instability, left ankle; M76.822 Posterior tibial tendinitis, left leg | CPT/HCPCS: 99213 ==

== ENCOUNTER 2023-10-12 15:24 | Outpatient (CLI) | payer MEDICARE, MEDICAID, SELFPAY ==
--- NOTE | 2023-10-12 15:31 | XRR_ITS ---
PROCEDURE INFORMATION: Exam: XR Right Ankle Exam date and time: 10/12/2023 3:44 PM Age: 23 years old Clinical indication: Swelling or effusion of joint; Ankle; Additional info: Right ankle swelling TECHNIQUE: Imaging protocol: Radiologic exam of the right ankle. Views: 3 or more views. COMPARISON: No relevant prior studies available. FINDINGS: Bones/joints: Ankle mortise is intact without evidence of acute fracture or subluxation. Soft tissues: Diffuse soft tissue edema. XR/XR ankle RT min 3V* [id number] IMPRESSION: 1. Diffuse soft tissue edema without evidence of acute fracture or subluxation. If there is concern for ligamentous or tendon pathology, follow-up outpatient MRI may be helpful.
== END 2023-10-12 15:25 | disposition home or self-care (01) ==
LOC: RAD 15:26
PROVIDERS: PCP Nurse Practitioner Family; Visit Provider Nurse Practitioner Family
DX: M25.471 Effusion, right ankle (principal)
CPT/HCPCS: 73610

== ENCOUNTER 2024-01-23 12:45 | Emergency (ER) | payer MEDICARE, MEDICAID, SELFPAY ==
[2024-01-23 13:01] VITALS: BP 135/90; PULSE 67; RESP 16; TEMP 36.6; O2SAT 95
--- NOTE | 2024-01-23 13:30 | ED_ITS ---
HPI - Extremity Problem 2 General: Chief complaint: Extremity Problem,Nontraumatic Stated complaint: Right leg/Foot swelling Time Seen by Provider: 01/23/24 13:30 History of Present Illness: 23-year-old female comes in today with i ncreased swelling of the right leg and foot. Patient appears nontoxic. Patient takes 12-1/2 mg of hydrochlorothiazide for blood pressure routinely. Patient has been on the medication for 3 to 4 months to help with the swelling but also has some high blood pressure. 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 Patient is not very mobile. Patient does have a brace to her left lower extremity for mobility and tibial tendon dysfunction. Patient also has mild cognitive disability. Review of Systems 2 General: Reports: 10 or more systems reviewed and unremarkable except in HPI and below Musc: Reports: extremity swelling PFSH ED 2 PFSH: Medical History Bilateral bunions Flat feet Mild cognitive disorder Posterior tibial tendon dysfunction, left Surgical History History of tonsillectomy Family History Grandmother Diabetes Other Cancer Denies family history of Stroke Social History Smoking and tobacco/nicotine status: never used tobacco/nicotine Alcohol intake: never Substance/Drug Use: never Household members: family Current occupation: [employer] Physical Exam 2 Const: COMMON NORMALS: alert HENMT: COMMON NORMALS: normocephalic HEAD & SCALP: normocephalic Neck/C-Spine: COMMON NORMALS: full ROM Resp: COMMON NORMALS: normal respiratory effort and clear to auscultation bilaterally AUSCULTATION: clear to auscultation bilaterally Cardio: COMMON NORMALS: regular rate and regular rhythm RATE: regular rate RHYTHM: regular rhythm GI: COMMON NORMALS: non-tender Back/Pelvis: COMMON NORMALS: thoracic and lumbar spine normal to inspection Extremity: NARRATIVE EXTREMITY EXAM: Edema noted to the right lower extremity. Less edema is noted to the left. Pulses are intact. No significant redness is noted. Patient also has some varicosities. Neuro: SENSORIUM/ORIENTATION: Yes alert Skin: COMMON NORMALS: turgor normal GENERAL SKIN EXAM: turgor normal Course 2 Vital Signs: Vital signs: Vital Signs Temperature 97.9 F 01/23/24 13:01 Pulse Rate 64 01/23/24 13:51 Respiratory Rate 16 01/23/24 13:51 Blood Pressure 144/93 01/23/24 13:51 Pulse Oximetry 94 01/23/24 13:51 Oxygen Delivery Me thod Room Air 01/23/24 13:51 MDM - Extremity (Nontraumatic) Medical Decision Making 23-year-old female comes in today with increased swelling to the right lower extremity. On exam we note varicosities to the right lower leg. Distal pulses intact. Skin is warm and dry. Patient has +2 swelling to right ankle. +1 is noted to the left. No significant redness. No calf pain or popliteal tenderness. Differential diagnosis DVT, dependent edema, lymphedema, varicose veins, peripheral vascular disease, hypertension. Ultrasounds negative for DVT. Laboratory values were unremarkable. Chest x-ray was normal. Believe patient probably has dependent edema. Will give a trial of furosemide 20 mg daily for the next 7 days to see if they would help remove the extra fluid. Reviewed recommendations for trying to elevate feet is much as possible when setting and of course went at home she should definitely elevate at night. Patient reports understanding agreed to plan. Patient's mother also reports understanding. Lab Data 01/23/24 13:46 01/23/24 13:46 Radiology Impressions Chest X-Ray 01/23/24 13:36 IMPRESSION: No acute radiographic findings. Venous Duplex 01/23/24 13:36 IMPRESSION: No sonographic evidence of deep vein thrombosis. Laboratory Results WBC 9.75 10^3/uL (3.29-11.43) 01/23/24 13:46 RBC 4.02 10^6/uL (3.85-5.65) 01/23/24 13:46 Hgb 13.10 g/dL (11.27-16.99) 01/23/24 13:46 Hct 39.7 % (36-47) 01/23/24 13:46 MCV 98.8 fl (85-98) H 01/23/24 13:46 MCH 32.6 pg (27-33) 01/23/24 13:46 MCHC 33.0 g/dL (30-55) 01/23/24 13:46 RDW 12.7 % (12.1-15.1) 01/23/24 13:46 Plt Count 230 10^3/cmm (157-399) 01/23/24 13:46 MPV 9.1 fL (7.4-10.4) 01/23/24 13:46 Neut % (Auto) 73.6 % 01/23/24 13:46 Lymph % (Auto) 16.1 % 01/23/24 13:46 [place] % (Auto) 8.9 % 01/23/24 13:46 Eos % (Auto) 0.6 % 01/23/24 13:46 Baso % (Auto) 0.4 % 01/23/24 13:46 Neut # (Auto) 7.17 10^3/uL (1.8-7.7) 01/23/24 13:46 Lymph # (Auto) 1.6 10^3/uL (0.8-4.8) 01/23/24 13:46 [place] # (Auto) 0.9 10^3/uL (0.2-0.9) 01/23/24 13:46 Eos # (Auto) 0.1 10^3/uL (0.0-0.8) 01/23/24 13:46 Baso # (Auto) 0.0 10^3/uL (0.0-0.1) 01/23/24 13:46 Nucleated RBC % (auto) 0 % 01/23/24 13:46 Nucleated RBCs # 0.0 /100WBC 01/23/24 13:46 Sodium 142 mmol/L (136-145) 01/23/24 13:46 Potassium 3.6 mmol/L (3.5-5.1) 01/23/24 13:46 Chloride 104 mmol/L (98-107) 01/23/24 13:46 Carbon Dioxide 28 mmol/L (22-29) 01/23/24 13:46 Anion Gap 13.6 (5-19) 01/23/24 13:46 BUN 15 mg/dL (6-20) 01/23/24 13:46 Creatinine 0.7 mg/dL (0.5-0.9) 01/23/24 13:46 GFR Calculation 102.8 mL/min (90-130) 01/23/24 13:46 Glucose 86 mg/dL (65-115) 01/23/24 13:46 Calculated Osmolality 294 mOsm/kg (285-295) 01/23/24 13:46 Calcium 9.2 mg/dL (8.5-10.5) 01/23/24 13:46 Total Bilirubin 0.5 mg/dL (0.15-1.2) 01/23/24 13:46 AST 15 U/L (0-32) 01/23/24 13:46 ALT 16 U/L (0-33) 01/23/24 13:46 Alkaline Phosphatase 66 U/L (35-105) 01/23/24 13:46 NT-Pro-B Natriuret Pep 46 pg/mL (0-125) 01/23/24 13:46 Total Protein 7.1 g/dL (6.6-8.7) 01/23/24 13:46 Albumin 4.1 g/dL (3.5-5.2) 01/23/24 13:46 Globulin 3.0 g/dL (1.3-4.6) 01/23/24 13:46 HCG, Qual Negative (Negative) 01/23/24 13:46 All radiology interpretation(s) finalized by discharge EKG Data EKG 1: I personally reviewed and interpreted this EKG as follows: EKG interpretation date: 01/23/24 EKG interpretation time: 13:54 Prior EKG tracings: not available for review Interpretation: EKG shows a normal sinus rhythm with a regular rate at [address] elevation or ectopy is noted. No prior exam was available for comparison. Computer generated interpretation: Sinus rhythm, normal EKG, unconfirmed report. Discharge Plan Discharge Patient Disposition: Home Clinical Impression: Edema, peripheral Condition: Stable Prescriptions: New furosemide 20 mg tablet 20 mg PO DAILY Qty: 7 0RF potassium chloride 10 mEq tablet extended release 10 meq PO DAILY Qty: 7 0RF No Action (DME) Spectrum AFO to left See Rx Instructions .Route .MEDSUPPLY Qty: 1 0RF Rx Instructions: As directed by PATEL&O Discharge Orders: Discharge ED (Routine); Ordered 01/23/24 Ordered By: Lawrence Lantigua Referrals: Holly Coronel NP [Primary Care Provider] - Discharge Diet: Usual diet Discharge Activity: Increase activity as tolerated Patient Instructions: Edema (ED) Activity Restrictions/Additional Instructions: Take diuretic for the next 7 days to help get off extra fluid. Elevate feet is much as possible. Follow-up with primary care in 3 to 5 days for recheck. Return to ED for new concerns such as high fever greater than 100.4, chest pain, or shortness of breath. Stand Alone Forms: Work/School Release Coding Level of Care Code ED Tobacco Stripper Hand for Med Tellez
--- NOTE | 2024-01-23 13:36 | USR_ITS ---
PROCEDURE INFORMATION: Exam: US Duplex Right Lower Extremity Veins, Limited Exam date and time: 01/23/2024 2:03 PM Age: 23 years old Clinical indication: Pain; Leg, lower; Right; Additional info: R/O dvt TECHNIQUE: Imaging protocol: Real-time duplex ultrasound of the right extremity with 2-D buckley scale, color Doppler flow and spectral waveform analysis including responses to compression and other maneuvers (when performed) with image documentation. Limited exam was focused on the right lower extremity veins. COMPARISON: CR XR ankle RT min 3V* [id number] 10/12/2023 3:44 PM FINDINGS: Right deep veins: Unremarkable. The common femoral, femoral, proximal profunda femoral, popliteal and visualized calf veins are patent without thrombus. Normal Doppler waveforms. Normal compressibility and/or augmentation response. Superficial veins: Greater saphenous vein at the saphenofemoral junction is patent without thrombus. Soft tissues: Unremarkable. US/[place] [id number] IMPRESSION: No sonographic evidence of deep vein thrombosis.
--- NOTE | 2024-01-23 13:36 | XRR_ITS ---
PROCEDURE INFORMATION: Exam: XR Chest Exam date and time: 01/23/2024 2:45 PM Age: 23 years old Clinical indication: Dyspnea; Additional info: HTN TECHNIQUE: Imaging protocol: Radiologic exam of the chest. Views: 1 view. COMPARISON: CT angio chest PE protcl [id number] 06/24/2021 12:19 AM FINDINGS: Lungs: Unremarkable. No consolidation. Pleural spaces: Unremarkable. No pleural effusion. No pneumothorax. Heart/Mediastinum: Unremarkable. No cardiomegaly. Bones/joints: Unremarkable. XR/XR chest 1V portable [id number] IMPRESSION: No acute radiographic findings.
--- NOTE | 2024-01-23 13:48 | ECG_ITS ---
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 Measurements Intervals Scroggins Rate: 63 P: 28 MD: 155 QRS: 38 QRSD: 106 T: 46 QT: 405 QTc: 416 Interpretive Statements SINUS RHYTHM No previous ECG available for comparison Electronically Signed On 01-23-2024 19:18:52 CDT by Niko Sawant M.D. [email or web address]
[2024-01-23 13:51] VITALS: BP 144/93; PULSE 64; RESP 16; O2SAT 94
[2024-01-23 13:56] LABS: Basophils % 0.4 %; Eosinophils # 0.1 10^3/uL (0.0-0.8); Eosinophils % 0.6 %; Hematocrit 39.7 % (36-47); Lymphocytes # 1.6 10^3/uL (0.8-4.8); Lymphocytes % 16.1 %; Mean Corpuscular Hemoglobin 32.6 pg (27-33); Mean Corpuscular Volume 98.8 fl (85-98); Mean Platelet Volume 9.1 fL (7.4-10.4); Monocytes # 0.9 10^3/uL (0.2-0.9); Monocytes % 8.9 %; Neutrophils # 7.17 10^3/uL (1.8-7.7); Neutrophils % 73.6 %; Nucleated Red Blood Cells % 0 %; Platelet Count 230 10^3/cmm (157-399); Red Blood Count 4.02 10^6/uL (3.85-5.65); Red Cell Distribution Width 12.7 % (12.1-15.1); White Blood Count 9.75 10^3/uL (3.29-11.43)
[2024-01-23 14:23] LABS: Alanine Aminotransferase 16 U/L (0-33); Albumin Level 4.1 g/dL (3.5-5.2); Alkaline Phosphatase 66 U/L (35-105); Anion Gap 13.6 (5-19); Aspartate Amino Transferase 15 U/L (0-32); Blood Urea Nitrogen 15 mg/dL (6-20); Calcium 9.2 mg/dL (8.5-10.5); Carbon Dioxide 28 mmol/L (22-29); Chloride 104 mmol/L (98-107); Creatinine Clr Calc Pharmacy 179.0834; Glomerular Filtration Rate 102.8 mL/min (90-130); Glucose 86 mg/dL (65-115); NT Pro B Type Natriuretic Pept 46 pg/mL (0-125); Osmolality Calculated 294 mOsm/kg (285-295); Potassium 3.6 mmol/L (3.5-5.1); Sodium 142 mmol/L (136-145); Total Bilirubin 0.5 mg/dL (0.15-1.2); Total Protein 7.1 g/dL (6.6-8.7)
[2024-01-23 14:33] LABS: HCG, Serum Qual Negative (Negative)
[2024-01-23] MEDS: potassium chloride ER 20 mEq Tablet PO (14:52)
[2024-01-23] MEDS: FUROsemide 40 mg Tablet PO (14:52)
== END 2024-01-23 15:19 | disposition home or self-care (01) ==
PROVIDERS: Emergency Provider Nurse Practitioner Family; PCP Nurse Practitioner Family
DX: R60.0 Localized edema (principal)
CPT/HCPCS: 36415; 71045; 80053; 83880; 84703; 85025; 93005; 93971; 99285

== ENCOUNTER 2024-03-24 13:45 | Outpatient (CLI) | payer MEDICARE, MEDICAID, SELFPAY ==
--- NOTE | 2024-03-24 13:49 | US_ITS ---
WS: [id number] US transvaginal [id number] HISTORY: AMENORRHEA COMPARISON: None available. Uterus: 6.3 cm x 3.6 cm x 2.7 cm. Normal size anteverted uterus. No fibroid or mass. Possible fibroid from the fundus measuring 0.6 x 0 .8 x 0.5 cm. Endometrium: 0.6 cm. Normal. Right ovary: 3.6 cm x 3.7 cm x 1.9 cm. RIGHT ovary is poorly visualized. The margins are not well jose ntified. It would be difficult to exclude an abnormality. Left ovary: Not visualized. No free fluid in the cul-de-sac. US/US transvaginal [id number] IMPRESSION: 1. Technically very difficult evaluation of the pelvic structures. 2. Normal endometrium. 3. Small fibroid from the fundus measures 0.6 x 0.8 x 0.5 cm. 4. LEFT ovary is not visualized. 5. The RIGHT ovary is visualized but limited evaluation.
== END 2024-03-24 13:48 | disposition home or self-care (01) ==
PROVIDERS: PCP Nurse Practitioner Family; Visit Provider Nurse Practitioner Family
DX: N91.2 Amenorrhea, unspecified (principal)
CPT/HCPCS: 76830

== ENCOUNTER → 2024-04-26 14:25 | Outpatient (BNVA) | payer MEDICARE, MEDICAID, SELFPAY | PROVIDERS: PCP Nurse Practitioner Family; Referring Provider Nurse Practitioner Family; Visit Provider Nurse Practitioner Family | DX: B07.8 Other viral warts (principal) | CPT/HCPCS: 11900; 99203 ==

== ENCOUNTER → 2024-05-17 13:44 | Outpatient (BNVA) | payer MEDICARE, MEDICAID, SELFPAY | PROVIDERS: PCP Nurse Practitioner Family; Visit Provider Nurse Practitioner Family | DX: B07.8 Other viral warts (principal) | CPT/HCPCS: 11900; 99213 ==

== ENCOUNTER → 2024-06-07 14:33 | Outpatient (BNVA) | payer MEDICARE, MEDICAID, SELFPAY | PROVIDERS: PCP Nurse Practitioner Family; Visit Provider Nurse Practitioner Family | DX: B07.8 Other viral warts (principal) | CPT/HCPCS: 11900; 99213 ==

== ENCOUNTER → 2024-06-28 13:21 | Outpatient (BNVA) | payer MEDICARE, MEDICAID, SELFPAY | PROVIDERS: PCP Nurse Practitioner Family; Visit Provider Nurse Practitioner Family | DX: B07.8 Other viral warts (principal) | CPT/HCPCS: 11900; 99213 ==

== ENCOUNTER → 2024-07-26 15:19 | Outpatient (BNVA) | payer MEDICARE, MEDICAID, SELFPAY | PROVIDERS: PCP Nurse Practitioner Family; Visit Provider Nurse Practitioner Family | DX: B07.8 Other viral warts (principal); D48.5 Neoplasm of uncertain behavior of skin | CPT/HCPCS: 11102; 11900; 99213 ==

== ENCOUNTER → 2024-08-15 14:29 | Outpatient (BNVA) | payer MEDICARE, MEDICAID, SELFPAY | PROVIDERS: PCP Nurse Practitioner Family; Visit Provider Obstetrics & Gynecology | DX: N91.2 Amenorrhea, unspecified (principal) | CPT/HCPCS: 80053; 84146; 84443; 85025 ==

== ENCOUNTER → 2024-10-16 14:42 | Outpatient (BNVA) | payer MEDICARE, MEDICAID, SELFPAY | PROVIDERS: PCP Nurse Practitioner Family; Visit Provider Nurse Practitioner Family | DX: B07.8 Other viral warts (principal) | CPT/HCPCS: 99213 ==

== ENCOUNTER → 2024-10-17 14:09 | Outpatient (BNVA) | payer MEDICARE, MEDICAID, SELFPAY | PROVIDERS: PCP Nurse Practitioner Family; Visit Provider Dermatology | DX: B07.8 Other viral warts (principal); R20.8 Other disturbances of skin sensation; L29.89 Other pruritus; L53.8 Other specified erythematous conditions; D48.5 Neoplasm of uncertain behavior of skin | CPT/HCPCS: 11102; 11306; 99213 ==

== ENCOUNTER 2024-10-27 09:11 | Outpatient (CLI) | payer MEDICARE, MEDICAID, SELFPAY ==
--- NOTE | 2024-10-27 09:16 | US_ITS ---
WS: [id number] RIGHT UPPER QUADRANT ULTRASOUND HISTORY: ABNORMAL LEVELS OF OTHER SERUM ENZYMES COMPARISON: None available. Liver: 16.6 cm in length. Normal size liver. Coarse echotexture with mild heterogeneity. No mass. Suspect there are areas of fatty sparing and and hepatic steatosis. No intrahepatic duct dilatation. Portal Vein: Normal hepatopetal flow with monophasic waveform. Gallbladder: Normally distended gallbladder with numerous stones. No pericholecystic fluid. No gallbladder wall thickening. Several stones extending into the neck of the gallbladder. CBD: 0.2 cm Pancreas: Not visualized due to body habitus. Right kidney: 10.7 cm in length. Normal size and echogenicity. No hydronephrosis or mass. Aorta and IVC: Unremarkable abdominal aorta and IVC. No ascites. US/US abdomen limited [id number] IMPRESSION: 1. Cholelithiasis. Numerous stones present in the gallbladder. Some of the sto jase extend into the neck. No cholelithiasis. Consider surgical evaluation. 2. Mild hepatic steatosis with areas of sparing.
== END 2024-10-27 09:12 | disposition home or self-care (01) ==
PROVIDERS: PCP Nurse Practitioner Family; Visit Provider Nurse Practitioner Family
DX: R74.8 Abnormal levels of other serum enzymes (principal); K80.20 Calculus of gallbladder without cholecystitis without obstruction; K76.0 Fatty (change of) liver, not elsewhere classified
CPT/HCPCS: 76705

== ENCOUNTER → 2024-11-14 15:27 | Outpatient (BNVA) | payer MEDICARE, MEDICAID, SELFPAY | PROVIDERS: PCP Nurse Practitioner Family; Visit Provider Dermatology | DX: B07.8 Other viral warts (principal) | CPT/HCPCS: 11102; 99214 ==

== ENCOUNTER → 2024-11-16 10:50 | Outpatient (BNVA) | payer MEDICARE, MEDICAID, SELFPAY | PROVIDERS: PCP Nurse Practitioner Family; Visit Provider Student in an Organized Health Care Education/Training Program | DX: K82.9 Disease of gallbladder, unspecified (principal) | CPT/HCPCS: 99204 ==

== ENCOUNTER 2024-11-21 14:49 | Outpatient (CLI) | payer OTHER, MEDICAID, SELFPAY ==
--- NOTE | 2024-11-21 15:15 | MR_ITS ---
WS: [id number] MRCP (MAGNETIC RESONANCE CHOLANGIOPANCREATOGRAPHY) HISTORY: Gallstones. COMPARISON: Ultrasound 10/27/2024. TECHNIQUE: Multiple sequences are performed to evaluate the intra and extrahepatic ducts. Gallbladder is mildly contracted around numerous stones within the gallbladder. No pericholecystic fluid. No gallbladder wall thickening is identified. Pancreas is normal with no evidence for acute pancreatitis. Normal common bile duct. No filling defects within the common bile duct. CBD is very small caliber measuring approximately 3 mm. Pancreatic duct is not dilated. No renal obstruction. Mild hepatomegaly with hepatic steatosis. LEFT adrenal mass measures 3.2 x 1.5 cm with dropout of signal on the out of phase imaging consistent with an adenoma. This adenoma was present on a prior CT of 06/24/2021. No ascites or adenopathy. MR/MR MRCP 31110 IMPRESSION: 1. Normal common bile duct. No choledocholithiasis. 2. Stone filled gallbladder without evidence for acute cholecystitis. 3. LEFT adrenal adenoma. 4. Mild hepatic steatosis.
== END 2024-11-21 14:50 | disposition home or self-care (01) ==
LOC: RAD 14:51
PROVIDERS: PCP Nurse Practitioner Family; Visit Provider Student in an Organized Health Care Education/Training Program
DX: K80.20 Calculus of gallbladder without cholecystitis without obstruction (principal); D35.02 Benign neoplasm of left adrenal gland; K76.0 Fatty (change of) liver, not elsewhere classified; R16.0 Hepatomegaly, not elsewhere classified
CPT/HCPCS: 74181

== ENCOUNTER → 2025-01-02 10:49 | Outpatient (BNVA) | payer OTHER, MEDICAID, SELFPAY | PROVIDERS: PCP Nurse Practitioner Family; Visit Provider Dermatology | DX: B07.8 Other viral warts (principal); R20.8 Other disturbances of skin sensation; R23.8 Other skin changes | CPT/HCPCS: 11102; 99214 ==

== ENCOUNTER 2025-02-14 09:08 | Emergency (ER) | payer OTHER, MEDICAID, SELFPAY ==
[2025-02-14 09:19] VITALS: PULSE 87; RESP 18; TEMP 37.2; O2SAT 97
--- OUTSIDE RECORDS SUMMARY | 2025-02-14 09:21 | XMS_ITS | Encounter Summary ---
Author Organization [facility] Address [address] [place] [address] Care Team Providers Care Concrete Carpenter Name Role Phone Summer Solano DO Primary Care Provider Encounter Details Date Type Department Care Team (Latest Contact Info) Description 11/07/2004 Outpatient Historical [facility] [address] [place] [phone] Rodriguez Johnson MD [address] [place] [phone] CHRONIC SINUSITIS NOS (Primary Dx) Social History Tobacco Use Types Packs/Day Years Used Date Smoking Tobacco: Never Assessed Comments Unknown Sex and Gender Information Value Date Recorded Sex Assigned at Not on file 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
--- OUTSIDE RECORDS SUMMARY | 2025-02-14 09:21 | XMS_ITS | Encounter Summary ---
Author Organization [facility] Address [address] [place] [address] Care Team Providers Care Senior Data Analyst Name Role Phone Summer Solano DO Primary Care Provider Encounter Details Date Type Department Care Team (Latest Contact Info) Description 06/10/2004 Outpatient Historical [facility] Medicine- [place] [address] [place] [address] Rodriguez Johnson MD [address] [place] [phone] ACUTE PHARYNGITIS (Primary Dx) Social History Tobacco Use Types Packs/Day Years Used Date Smoking Tobacco: Never Assessed Comments Unknown Sex and Gender Information Value Date Recorded Sex Assigned at Not on file Legal Sex Female 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
--- OUTSIDE RECORDS SUMMARY | 2025-02-14 09:21 | XMS_ITS | Encounter Summary ---
Author Organization [facility] Address [address] [place] [address] Care Team Providers Care Racker Octave Board Name Role Phone Summer Solano DO Primary Care Provider Encounter Details Date Type Department Care Team (Latest Contact Info) Description 11/27/[address] 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
--- OUTSIDE RECORDS SUMMARY | 2025-02-14 09:21 | XMS_ITS | Encounter Summary ---
Author Organization [facility] Address [address] [place] [address] Care Team Providers Care Clinical Fellow Name Role Phone Summer Solano DO Primary Care Provider Encounter Details Date Type Department Care Team (Latest Contact Info) Description 06/04/2005 Outpatient Historical [facility] [place] [address] [place] [address] Rodriguez Johnson MD [address] [place] [phone] CONJUNCTIVITIS NOS (Primary Dx) Social History Tobacco Use Types Packs/Day Years Used Date Smoking Tobacco: Never Assessed Comments Unknown Sex and Gender Information Value Date Recorded Sex Assigned at Not on file Legal Sex Female 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
--- OUTSIDE RECORDS SUMMARY | 2025-02-14 09:21 | XMS_ITS | Clinical Summary ---
Author Organization [facility] Address [address] [place] [address] Care Team Providers Care Continuous Improvement Analyst Name Role Phone Summer Solano Johann FLORES Primary Care Provider Allergies No known active allergies Medications chlorpheniramin e-phenylephrine SA ([facility]) 4.5-5 mg/5 mL Oral SuspIndications :Acute URI Take 5 mL by mouth every 12 hours. 120 mL 0 1 Active antipyrine-eva ocaine (AURODEX) 5.4-1.4 % OT DropIndications :Acute serous otitis media Administer 3 Drops in left ear every 3 hours as needed for Pain. 1 Bottle 0 1 Active Active Problems Problem Noted Date Diagnosed Date Mental retardation Family History Medical History Relation Name Comments High Cholesterol Maternal Grandfather Hypertension Maternal Grandfather High Cholesterol Maternal Grandmother Hypertension Maternal Grandmother Mental Retardation Mother Relation Name Status Comments Father Unknown Maternal Grandfather Alive Maternal Grandmother Alive Mother Alive Social History Tobacco Use Types Packs/Day Years Used Date Smoking Tobacco: Never Alcohol Use Standard Drinks/Week Comments Not Asked 0 (1 standard drink = 0.6 oz pur e alcohol) Comments No Sex and Gender Information Value Date Recorded Sex Assigned at Not on file Legal Sex Female 3:12 AM BODY STYLIST Gender Identity Not on file Sexual Orientation Not on file Occupation Industry Job Start Date Job End Date Student Not on file Not on file Not on file Last Filed Vital Signs Vital Sign Reading Time Taken Comments Blood Pressure - - Pulse 100 10/24/2010 10:38 AM CDT Temperature 36.3 C (97.4 F) 10/24/2010 10:38 AM CDT Respiratory Rate 20 10/24/2010 10:38 AM CDT Oxygen Saturation - - Inhaled Oxygen Concentration - - Weight 78 kg (172 lb) 10/24/2010 10:38 AM CDT Height 167.6 cm (5' 6 ) 10/24/2010 10:38 AM CDT Body Mass Index 27.76 10/24/2010 10:38 AM CDT Plan of Treatment Health Maintenance Due Date Last Done Comments HPV VACCINES (1 - 3-dose series) 2014 DTAP/TDAP/TD VACCINES (1 - Tdap) 2018 HEPATITIS B VACCINES (1 of 3 - 19+ 3-dose series) 02/17 Preventative Visit-Managed Medicaid 2018 CERVICAL CANCER SCREENING 2020 HPV/Cotest (-) 2020 PAP SMEAR 2020 INFLUENZA VACCINE (#1) 2025 [place] Care Teams Continuous Improvement Analyst Relationship Specialty Start Date End Date Summer Solano DO [address] [place] [address] PCP - General Family Practice 10/24/10
--- OUTSIDE RECORDS SUMMARY | 2025-02-14 09:21 | XMS_ITS | Encounter Summary ---
Author Organization [facility] Address [address] [place] [address] Care Team Providers Care Facilities Director Name Role Phone Summer Solano DO Primary Care Provider [phone] Encounter Details Date Type Department Care Team (Latest Contact Info) Description 12/08/2004 Outpatient Historical [facility] Ear, Nose and Throat [address] 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
--- OUTSIDE RECORDS SUMMARY | 2025-02-14 09:21 | XMS_ITS | Encounter Summary ---
Author Organization [facility] Address [address] [place] [address] Care Team Providers Care Marking Machine Operator Name Role Phone Summer Solano DO Primary Care Provider Encounter Details Date Type Department Care Team (Latest Contact Info) Description 06/18/2004 Outpatient Historical [facility] Medicine- [place] [address] [place] [address] Rodriguez Johnson MD [address] [place] [phone] ACUTE PHARYNGITIS (Primary Dx) Social History Tobacco Use Types Packs/Day Years Used Date Smoking Tobacco: Never Assessed Comments Unknown Sex and Gender Information Value Date Recorded Sex Assigned at Not on file Legal Sex Female 3:12 AM DIRECTOR OF APPLICATION DEVELOPMENT Gender Identity Not on file Sexual Orientation Not on file documented as of this encounter Plan of Treatment Not on file documented as of this encounter Visit Diagnoses Diagnosis Acute pharyngitis- Primary documented in this encounter Care Teams Marking Machine Operator Relationship Specialty Start Date End Date Summer Solano DO [address] [place] [address] PCP - General Family Practice 10/24/10 documented as of this encounter
--- OUTSIDE RECORDS SUMMARY | 2025-02-14 09:21 | XMS_ITS | Encounter Summary ---
Author Organization [facility] Address [address] [place] [address] Care Team Providers Care Research Program Intern Name Role Phone Summer Solano DO Primary Care Provider Encounter Details Date Type Department Care Team (Latest Contact Info) Description 12/17/2004 Outpatient Historical [facility] Head and Neck Surgery-[address] [place] [address] [place] [phone] Tod Chambers MD [address] [place] [address] CHRONIC TONSILLITIS (Primary Dx); RESP SYSTEM DISEASE NEC Social History Tobacco Use Types Packs/Day Years Used Date Smoking Tobacco: Never Assessed Comments Unknown Sex and Gender Information Value Date Recorded Sex Assigned at Not on file Legal Sex Female 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
--- OUTSIDE RECORDS SUMMARY | 2025-02-14 09:21 | XMS_ITS | Clinical Summary ---
Author Organization [facility] Address [address] [place]: [place] [address] Care Team Providers Care Underground Miner Name Role Phone Summer Solano Primary Care Provider Allergies No known active allergies Active Problems Problem Noted Date Diagnosed Date Mental retardation Encounters Date Type Department Care Team Description 01/31/2025 External Device Data STL ABSTRACTION Provider, Abstract 01/30/2025 External Device Data ST[place] ABSTRACTION Provider, Abstract 01/02/2025 External Device Data [place] ABSTRACTION Provider, Abstract 12/07/2024 External Device Data [place] ABSTRACTION Provider, Abstract 12/07/2024 External Device Data [place] ABSTRACTION Provider, Abstract 12/07/2024 External Device Data ST[place] ABSTRACTION Provider, Abstract 12/06/2024 External Device Data ST[place] ABSTRACTION Provider, Abstract 12/05/2024 External Device Data STL ABSTRACTION Provider, Abstract from Last 3 Months Family History Medical History Relation Name Comments [...] = 0.6 oz pur e alcohol) Comments Unknown Sex and Gender Information Value Date Recorded Sex Assigned at Not on file Legal Sex Female 4:02 PM FILM ARCHIVIST Gender Identity Not on file Sexual Orientation Not on file Plan of Treatment Health Maintenance Due Date Last Done Comments HPV VACCINES (1 - 3-dose series) 2014 DTAP/TDAP/TD VACCINES (1 - Tdap) 2018 HEPATITIS B VACCINES (1 of 3 - 19+ 3-dose series) 02/17 Preventative Visit-Managed Medicaid 2018 CERVICAL CANCER SCREENING 2020 HPV/Cotest (21-29) 2020 PAP SMEAR 2020 INFLUENZA VACCINE (#1) [address] [place] [address] MEDICAID [place] Care Teams Underground Miner Relationship Specialty Start Date End Date Summer Solano DO [address] [place] [address] PCP - General Family Practice 10/24/10
--- OUTSIDE RECORDS SUMMARY | 2025-02-14 09:21 | XMS_ITS | Encounter Summary ---
Author Organization [facility] Address [address] [place] [address] Care Team Providers Care Internal Grinder Name Role Phone Summer Solano DO Primary Care Provider [phone] Encounter Details Date Type Department Care Team (Latest Contact Info) Description 12/17/2004 Outpatient Historical [facility] Ear, Nose and Throat 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
--- NOTE | 2025-02-14 09:47 | XR_ITS ---
WS: [id number] Sacrum and coccyx, 3 views, 02/14/2025 Clinical Data: trauma Comparison: None. Findings: No fractures or dislocations are seen. The SI joints and pubic symphysis are unremarkable. No bone destruction or erosion is seen. The bladder is full. XR/XR sacrum coccyx min 2V [id number] Impression: Negative sacrum and coccyx.
--- NOTE | 2025-02-14 09:49 | ED_ITS ---
HPI - Fall 2 General: Chief Complaint: Fall Stated Complaint: falls Time Seen by Provider: 02/14/25 09:13 History of Present Illness: 24-year-old female who presents to the E D after a fall that occurred last night. Family in the room reports patient has mild cognitive delay but is able to have a conversation. Patient states that she experienced weakness in her legs which caused her to fall last night. She was alone and therefore was on the ground for about an hour. She reports of to her tailbone and states that she had a similar fall 2 weeks ago in which she also landed on her tailbone. She states she is currently being worked up by her PCP for her weakness that she has been experiencing over the last several months. Denies hitting her head, LOC, or pain anywhere else. No other complaints at this time. Associated symptoms-after fall: Denies abdominal pain, chest pain, headache(s) or neck pain Related Data Home Medications ?Medication ?Instructions ?Recorded ?Confirmed citalopram 10 mg tablet 10 mg PO DAILY 02/14/2501/18 metoprolol succinate 25 mg 25 mg PO DAILY 02/14/25 tablet,extended release 24 hr potassium chloride 20 mEq 20 meq PO BID 02/14/2502/14 tablet,extended release(part/cryst) Previous Rx's ?Medication ?Instructions ?Recorded Spectrum AFO to left #1 ea 10/19/22 furosemide 20 mg tablet 20 mg PO DAILY #7 tabs 01/22 desogestrel 0.15 mg-ethinyl 1 tab PO DAILY #84 tabs estradiol 0.03 mg tablet (Cyred) Allergies Allergy/AdvReac Type Severity Reaction Status Date / Time No Known Allergies Allergy Verified 11/16/24 10:55 Review of Systems 2 Const: Denies: fever(s) or chills Card: Denies: chest pain or palpitations Resp: Denies: dyspnea or non-productive cough GI: Denies: abdominal pain, nausea or vomiting : Denies: flank pain, difficulty voiding or dysuria Musc: Reports: other (Pain to tailbone); Denies: neck pain or back pain Neuro: Reports: weakness in extremities and frequent falls; Denies: headache(s) or dizziness PFSH ED 2 PFSH: Medical History Mild cognitive disorder Flat feet Bilateral bunions Posterior tibial tendon dysfunction, left Surgical History History of tonsillectomy Family History Grandmother Diabetes Heart disease Hypertension Denies family history of Colon cancer Ovarian cancer Prostate cancer Breast cancer Uterine cancer Thyroid disease Stroke Social History Smoking and tobacco/nicotine status: never used tobacco/nicotine Current occupation: [employer] Physical Exam 2 Const: COMMON NORMALS: no acute distress GENERAL APPEARANCE: cooperative and comfortable ORIENTATION/CONSCIOUSNESS: Yes awake, Yes oriented to person, Yes oriented to place and Yes oriented to time HENMT: COMMON NORMALS: normocephalic, atraumatic and hearing grossly normal bilaterally HEAD & SCALP: normocephalic and atraumatic Resp: COMMON NORMALS: normal respiratory effort, No retractions, No use of accessory muscles and clear to auscultation bilaterally AUSCULTATION: clear to auscultation bilaterally Cardio: COMMON NORMALS: regular rate, regular rhythm and No murmurs present (Cardio) RATE: regular rate RHYTHM: regular rhythm GI: COMMON NORMALS: Soft to palpation and No hepatosplenomegaly present A USCULTATION: Yes normoactive bowel sounds PALPATION: Yes Soft to palpation, No Tenderness to palpation present (GI), No Guarding due to palpation present (GI) and Yes No hepatosplenomegaly present Back/Pelvis: OTHER: Tender over the sacrum Extremity: COMMON NORMALS: normal to inspection, capillary refill normal, no clubbing, cyanosis or edema, no calf tenderness and no pedal edema Neuro: SENSORIUM/ORIENTATION: Yes oriented to person, Yes oriented to place and Yes oriented to time Skin: COMMON NORMALS: no rashes or lesions noted GENERAL SKIN EXAM: no rashes or lesions noted Course 2 Vital Signs: Vital signs: Vital Signs Temperature 98.9 F 02/14/25 09:19 Pulse Rate 58 L 02/14/25 12:56 Respiratory Rate 16 02/14/25 11:58 Blood Pressure 159/104 02/14/25 12:56 Pulse Oximetry 98 02/14/25 12:56 Oxygen Delivery Me thod Room Air 02/14/25 11:58 MDM - Fall Medical Decision Making No acute fracture ambulated well. No concerns with gait. Caregiver with the patient states she has been falling more frequently last few months. They have seen her primary care they have done some endocrine evaluation but have not found anything definitive. At this point patient has no emergent condition. Will discharge her home she otherwise states she is feeling fine beyond the tailbone pain. She does have a mildly elevated sodium that should be rechecked sometime in the next week. Will discharge her home made a referral with case management to neurology for her frequent falls. Medical Records I reviewed the patient's medical records. Lab Data I reviewed the patient's lab results. 02/14/25 09:51 02/14/25 09:51 Radiology Impressions Sacrum and Coccyx X-Ray 02/14/25 09:47 Impression: Negative sacrum and coccyx. Head CT 02/14/25 11:50 IMPRESSION: 1. No evidence of intracranial hemorrhage or mass effect. 2. No acute intracranial findings. Laboratory Results WBC 12.17 10^3/uL (3.29-11.43) H 02/14/25 09:51 RBC 3.77 10^6/uL (3.85-5.65) L 02/14/25 09:51 Hgb 12.20 g/dL (11.27-16.99) 02/14/25 09:51 Hct 37.9 % (36-47) 02/14/25 09:51 MCV 100.5 fl (85-98) H 02/14/25 09:51 MCH 32.4 pg (27-33) 02/14/25 09:51 MCHC 32.2 g/dL (30-55) 02/14/25 09:51 RDW 13.6 % (12.1-15.1) 02/14/25 09:51 Plt Count 214 10^3/cmm (157-399) 02/14/25 09:51 MPV 8.8 fL (7.4-10.4) 02/14/25 09:51 Neut % (Auto) 81.6 % 02/14/25 09:51 Lymph % (Auto) 8.5 % 02/14/25 09:51 [place] % (Auto) 8.3 % 02/14/25 09:51 Eos % (Auto) 0.1 % 02/14/25 09:51 Baso % (Auto) 0.2 % 02/14/25 09:51 Neut # (Auto) 9.93 10^3/uL (1.8-7.7) H 02/14/25 09:51 Lymph # (Auto) 1.0 10^3/uL (0.8-4.8) 02/14/25 09:51 [place] # (Auto) 1.0 10^3/uL (0.2-0.9) H 02/14/25 09:51 Eos # (Auto) 0.0 10^3/uL (0.0-0.8) 02/14/25 09:51 Baso # (Auto) 0.0 10^3/uL (0.0-0.1) 02/14/25 09:51 Nucleated RBC % (auto) 0 % 02/14/25 09:51 Nucleated RBCs # 0.0 /100WBC 02/14/25 09:51 Sodium 149 mmol/L (136-145) H 02/14/25 09:51 Potassium 3.5 mmol/L (3.5-5.1) 02/14/25 09:51 Chloride 109 mmol/L (98-107) H 02/14/25 09:51 Carbon Dioxide 31 mmol/L (22-29) H 02/14/25 09:51 Anion Gap 12.5 (5-19) 02/14/25 09:51 BUN 12 mg/dL (6-20) 02/14/25 09:51 Creatinine 0.7 mg/dL (0.5-0.9) 02/14/25 09:51 GFR Calculation 102.0 mL/min (90-130) 02/14/25 09:51 Glucose 92 mg/dL (65-115) 02/14/25 09:51 Calculated Osmolality 307 mOsm/kg (285-295) H 02/14/25 09:51 Calcium 9.1 mg/dL (8.5-10.5) 02/14/25 09:51 Total Bilirubin 0.6 mg/dL (0.15-1.2) 02/14/25 09:51 AST 23 U/L (0-32) 02/14/25 09:51 ALT 54 U/L (0-33) H 02/14/25 09:51 Alkaline Phosphatase 193 U/L (35-105) H 02/14/25 09:51 Total Protein 6.4 g/dL (6.6-8.7) L 02/14/25 09:51 Albumin 3.7 g/dL (3.5-5.2) 02/14/25 09:51 Globulin 2.7 g/dL (1.3-4.6) 02/14/25 09:51 HCG, Qual Negative (Negative) 02/14/25 09:51 Urine Color Yellow (Yellow) 02/14/25 10:31 Urine Appearance Clear (CLEAR) 02/14/25 10:31 Urine pH 7.0 (5-7) 02/14/25 10:31 Ur Specific [place] 1.014 (1.005-1.030) 02/14/25 10:31 Urine Protein Negative (Negative) 02/14/25 10:31 Urine Glucose (UA) Negative (Normal) 02/14/25 10:31 Urine Ketones Negative (Negative) 02/14/25 10:31 Urine Blood Negative (Negative) 02/14/25 10:31 Urine Nitrate Negative (Negative) 02/14/25 10:31 Urine Bilirubin Negative (Negative) 02/14/25 10:31 Urine Urobilinogen 0.2 mg/dL (Negative) 02/14/25 10:31 Ur Leukocyte Esterase Negative (Negative) 02/14/25 10:31 Urine RBC 0-2 /hpf (0-2) 02/14/25 10:31 Urine WBC 0-5 /hpf (0-5) 02/14/25 10:31 Ur Squamous Epith Cells 0-5 /hpf (0-5) 02/14/25 10:31 Amorphous Sediment Not Reportable 02/14/25 10:31 Urine Bacteria None seen /hpf (NONE) 02/14/25 10:31 Hyaline Casts 1.21 /lpf 02/14/25 10:31 All radiology interpretation(s) finalized by discharge Discharge Plan Discharge Patient Disposition: Home Clinical Impression: Frequent falls, Coccygeal pain, acute Condition: Stable Prescriptions: No Action (DME) Spectrum AFO to left See Rx Instructions .Route .MEDSUPPLY Qty: 1 0RF Rx Instructions: As directed by PATEL&O desogestrel-ethinyl estradiol [Cyred] 0.15-0.03 mg tablet 1 tab PO DAILY Qty: 84 3RF furosemide 20 mg tablet 20 mg PO DAILY Qty: 7 0RF citalopram 10 mg tablet 10 mg PO DAILY potassium chloride 20 mEq tablet,ER particles/crystals 20 meq PO BID metoprolol succinate 25 mg tablet extended release 24 hr 25 mg PO DAILY Discharge Orders: Discharge ED (Routine); Ordered 02/14/25 Ordered By: Amari Zaragoza Referrals: Holly Coronel NP [Primary Care Provider, Unknown] Discharge Diet: Usual diet Discharge Activity: Increase activity as tolerated Patient Instructions: Opioid Safety, Pain Management, Patient Portal & Judi Instructions Activity Restrictions/Additional Instructions: Thank you for choosing [facility] for your healthcare needs today. It is very important that you follow up as instructed or that you return to the Emergency Department should you have concerns or if your condition changes or worsens in any way. You were seen in the emergency room after a fall. X-ray did not show any fracture of the coccyx. Laboratory work done shows mild elevation of white count likely secondary to the fall. Other labs generally unremarkable. I do recommend that you follow-up with neurology given your complaint of frequent falls. Case management will make a referral. Print Language: Hebrew Coding Level of Care Code ED Industrial Cleaning Technician for Med Tellez
--- NOTE | 2025-02-14 10:00 | ECG_ITS ---
[facility]: [facility]25[facility]02[facility]14 Pat Name: Andrew Zavala Department: Room: Gender: Female Shaper Machine Hand: : 2000 Requested By: Amari Wills Order Number: [id number] Yong MD: Niko Sawant M.D. Measurements Intervals [place] Rate: 59 P: 39 PA: 135 QRS: 38 QRSD: 84 T: 64 QT: 405 QTc: 402 Interpretive Statements SINUS BRADYCARDIA Compared to ECG 01/23/2024 13:48:14 Sinus rhythm no longer present Electronically Signed On 02-15-2025 10:24:27 CDT by Niko Sawant M.D. [email or web address]
[2025-02-14 10:05] LABS: Hematocrit 37.9 % (36-47); Hemoglobin 12.20 g/dL (11.27-16.99); Mean Corpuscular HGB Conc 32.2 g/dL (30-55); Mean Corpuscular Hemoglobin 32.4 pg (27-33); Mean Corpuscular Volume 100.5 fl (85-98); Nucleated Red Blood Cells % 0 %; Platelet Count 214 10^3/cmm (157-399); Red Blood Count 3.77 10^6/uL (3.85-5.65); White Blood Count 12.17 10^3/uL (3.29-11.43)
[2025-02-14 10:24] LABS: Alanine Aminotransferase 54 U/L (0-33); Albumin Level 3.7 g/dL (3.5-5.2); Alkaline Phosphatase 193 U/L (35-105); Anion Gap 12.5 (5-19); Aspartate Amino Transferase 23 U/L (0-32); Blood Urea Nitrogen 12 mg/dL (6-20); Calcium 9.1 mg/dL (8.5-10.5); Carbon Dioxide 31 mmol/L (22-29); Chloride 109 mmol/L (98-107); Creatinine Clr Calc Pharmacy 177.5396; Globulin 2.7 g/dL (1.3-4.6); Glucose 92 mg/dL (65-115); Osmolality Calculated 307 mOsm/kg (285-295); Potassium 3.5 mmol/L (3.5-5.1); Sodium 149 mmol/L (136-145); Total Protein 6.4 g/dL (6.6-8.7)
[2025-02-14 10:40] LABS: Glucose Urine UA Negative (Normal); Nitrate Urine Negative (Negative); Specific Gravity, Urine 1.014 (1.005-1.030)
[2025-02-14 10:45] LABS: Add Urine Microscopic? YES
[2025-02-14 10:51] LABS: HCG, Serum Qual Negative (Negative)
--- NOTE | 2025-02-14 11:50 | CT_ITS ---
WS: [id number] CT HEAD TECHNIQUE: Noncontrast CT of the head obtained from the skullbase to the vertex. CLINICAL INFORMATION: falls COMPARISON: None. DLP: 1205.[address] scans at [facility] use at least one of these dose optimization techniques: automated exposure control; mA and/or kV adjustment per patient size (includes targeted exams where dose is matched to clinical indication); or iterative reconstruction. FINDINGS: No evidence of intracranial hemorrhage or mass effect. Ventricular system and basal cisterns are patent. No extra-axial fluid collections. No evidence of mass or mass effect. Normal buckley-white differentiation. Paranasal sinuses and mastoid air cells are well aerated. .Normal visualized soft tissues. CT/CT head wo con* [id number] IMPRESSION: 1. No evidence of intracranial hemorrhage or mass effect. 2. No acute intracranial findings.
[2025-02-14 11:58] VITALS: PULSE 84; RESP 16; O2SAT 97
[2025-02-14 12:56] VITALS: BP 159/104; PULSE 58; O2SAT 98
--- NOTE | 2025-02-15 11:06 | PC.NURSE ---
Neurology referral sent.
== END 2025-02-14 13:08 | disposition home or self-care (01) ==
PROVIDERS: Emergency Provider Family Medicine; PCP Nurse Practitioner Family
DX: M53.3 Sacrococcygeal disorders, not elsewhere classified (principal); R29.6 Repeated falls
CPT/HCPCS: 36415; 70450; 72220; 80053; 81001; 84703; 85025; 93005; 99285

== ENCOUNTER → 2025-02-19 10:09 | Outpatient (BNVA) | payer OTHER, MEDICAID, SELFPAY | PROVIDERS: PCP Nurse Practitioner Family; Referring Provider Nurse Practitioner Family; Visit Provider Internal Medicine | DX: E27.9 Disorder of adrenal gland, unspecified (principal); E27.8 Other specified disorders of adrenal gland; H05.20 Unspecified exophthalmos; I10 Essential (primary) hypertension | CPT/HCPCS: 99204 ==

== ENCOUNTER 2025-02-26 09:17 | Outpatient (CLI) | payer OTHER, MEDICAID, SELFPAY ==
[2025-02-26 11:40] LABS: Alanine Aminotransferase 157 U/L (0-33); Albumin Level 3.9 g/dL (3.5-5.2); Alkaline Phosphatase 222 U/L (35-105); Anion Gap 11.9 (5-19); Aspartate Amino Transferase 43 U/L (0-32); Blood Urea Nitrogen 14 mg/dL (6-20); Calcium 9.3 mg/dL (8.5-10.5); Carbon Dioxide 30 mmol/L (22-29); Chloride 105 mmol/L (98-107); Free T4 Free Thyroxine 0.89 ng/dL (0.82-1.77); Globulin 2.8 g/dL (1.3-4.6); Glucose 107 mg/dL (65-115); Osmolality Calculated 299 mOsm/kg (285-295); Sodium 144 mmol/L (136-145); Thyroid Stimulating Hormone 0.66 uIU/mL (0.27-4.20); Total Protein 6.7 g/dL (6.6-8.7)
[2025-02-26 11:50] LABS: Creatinine 24 Hour Urine 864.0 mg/dL (601-1689); Total Volume Urine 3200 ml
[2025-02-26 13:23] LABS: Potassium 2.9 mmol/L (3.5-5.1)
== END 2025-02-26 09:18 | disposition home or self-care (01) ==
LOC: LAB 09:19
PROVIDERS: PCP Nurse Practitioner Family; Visit Provider Internal Medicine
DX: E27.9 Disorder of adrenal gland, unspecified (principal); J12.82 Pneumonia due to coronavirus disease 2019; U07.1 COVID-19
CPT/HCPCS: 36415; 80053; 82384; 82530; 82570; 83516; 83835; 84439; 84443; 84480; 86376; 86800

== ENCOUNTER 2025-03-05 14:15 | Outpatient (CLI) | payer OTHER, MEDICAID, SELFPAY ==
--- NOTE | 2025-03-05 14:20 | USCV_ITS ---
Andrew Zavala Age: 24 Gender: F : 2000 Exam Date: 03/05/2025 14:37 Ordering Phys: Holly Coronel NP Technologist: GALINA Exam Location: [facility] – [place] Indication: Htn. LE Edema BP: 158 / 120 HR: 64 Rhythm: Sinus Technical Quality: Adequate MEASUREMENTS (Male / Female) Normal Values 2D ECHO LV Diastolic Diameter PLAX 5.3 cm 4.2 - 5.9 / 3.9 - 5.3 cm IVS Diastolic Thickness 1.3 cm 0.6 - 1.0 / 0.6 - 0.9 cm IVS Systolic Thickness 2.2 cm LVPW Diastolic Thickness 1.4 cm 0.6 - 1.0 / 0.6 - 0.9 cm LVPW Systolic Thickness 2.1 cm LVOT Diameter 2.0 cm LV Ejection Fraction 2D Teich 63.9 % LV Ejection Fraction MOD 4C 62.9 % LV Ejection Fraction MOD 2C 57.7 % LV Ejection Fraction 2C AL 60.9 % LA Diameter 3.9 cm RA Systolic Volume 4C AL 28.3 ml RA Systolic Volume 4C MOD 26.9 ml LA Sys Volume AL 90.5 cm cubed LA Sys Volume Index AL 35.6 cm cubed/m squared Aorta at Sinotubular Diameter 2.4 cm M-MODE LA Ao Ratio MM 1.3 AV Cusp Separation MM 1.8 cm DOPPLER AV Peak Velocity 136.0 cm/s LVOT Peak Velocity 94.0 cm/s AV Area Cont Eq vti 3.0 cm squared AV Area Cont Eq pk 2.1 cm squared MV Peak Velocity 104.0 cm/s MV Area PHT 4.5 cm squared Mitral E to A Ratio 1.1 TR Peak Velocity 247.0 cm/s TR Peak Gradient 24.4 mmHg TV Peak E Velocity 97.0 cm/s PV Peak Velocity 122.0 cm/s FINDINGS Left Ventricle Normal left ventricular size, systolic function and wall thickness, with no regional wall motion abnormalities. Left ventricular ejection fraction is estimated at 62 %. Grade II/IV diastolic dysfunction, moderately elevated filling pressures. Right Ventricle The right ventricle is normal in size and function. Right Atrium The right atrium is normal in size. Left Atrium The left atrium is normal in size. Mitral Valve Structurally normal mitral valve. No mitral valve stenosis. Moderate mitral valve regurgitation. Aortic Valve Mild aortic valve calcification. No aortic valve stenosis. Mild aortic valve regurgitation. Tricuspid Valve Structurally normal tricuspid valve without significant stenosis or regurgitation. Pulmonary artery systolic pressure is normal. Pulmonic Valve Structurally normal pulmonic valve without significant stenosis. There is no pulmonic regurgitation. Pericardium Normal pericardium without effusion. Aorta Normal ascending aorta dimension. IVC The inferior vena cava appears normal. CONCLUSIONS Normal left ventricular size, systolic function and wall thickness, with no regional wall motion abnormalities. Left ventricular ejection fraction is estimated at 62 %. Grade II/IV diastolic dysfunction, moderately elevated filling pressures. Mild aortic valve calcification. No aortic valve stenosis. Mild aortic valve regurgitation. Structurally normal mitral valve. No mitral valve stenosis. Moderate mitral valve regurgitation. There is no pericardial effusion. Right atrial pressure is around 5 mm of mercury. Natali Oneal MD (Electronically Signed) Final Date: 18 March 2025 17:08 S
== END 2025-03-05 14:16 | disposition home or self-care (01) ==
LOC: RAD 14:16
PROVIDERS: PCP Nurse Practitioner Family; Visit Provider Nurse Practitioner Family
DX: I10 Essential (primary) hypertension (principal); R60.0 Localized edema; R93.1 Abnormal findings on diagnostic imaging of heart and coronary circulation; I34.0 Nonrheumatic mitral (valve) insufficiency; I35.1 Nonrheumatic aortic (valve) insufficiency; I35.8 Other nonrheumatic aortic valve disorders
CPT/HCPCS: 93306

== ENCOUNTER 2025-03-09 11:28 | Outpatient (CLI) | payer OTHER, MEDICAID, SELFPAY ==
[2025-03-09 12:12] LABS: Blood Urea Nitrogen 28 mg/dL (6-20); Calcium 9.1 mg/dL (8.5-10.5); Carbon Dioxide 25 mmol/L (22-29); Chloride 110 mmol/L (98-107); Glucose 103 mg/dL (65-115); Osmolality Calculated 306 mOsm/kg (285-295); Sodium 145 mmol/L (136-145)
[2025-03-09 12:23] LABS: Anion Gap 14.3 (5-19); Potassium 4.3 mmol/L (3.5-5.1)
== END 2025-03-09 11:29 | disposition home or self-care (01) ==
LOC: LAB 11:32
PROVIDERS: PCP Nurse Practitioner Family; Visit Provider Internal Medicine
DX: E87.6 Hypokalemia (principal)
CPT/HCPCS: 36415; 80048

== ENCOUNTER → 2025-03-12 10:22 | Outpatient (BNVA) | payer OTHER, MEDICAID, SELFPAY | PROVIDERS: PCP Nurse Practitioner Family; Visit Provider Internal Medicine | DX: E27.9 Disorder of adrenal gland, unspecified (principal); E24.9 Cushing's syndrome, unspecified; E27.8 Other specified disorders of adrenal gland | CPT/HCPCS: 36415; 80048; 82024; 82627; 99214 ==

== ENCOUNTER 2025-03-14 09:14 | Outpatient (CLI) | payer OTHER, MEDICAID, SELFPAY ==
[2025-03-14 11:18] LABS: Total Volume Urine 3300 ml
[2025-03-14 11:22] LABS: Creatinine 24 Hour Urine 1221.0 mg/dL (601-1689)
== END 2025-03-14 09:15 | disposition home or self-care (01) ==
PROVIDERS: PCP Nurse Practitioner Family; Visit Provider Internal Medicine
DX: E27.9 Disorder of adrenal gland, unspecified (principal)
CPT/HCPCS: 82530; 82570

== ENCOUNTER → 2025-04-20 10:44 | Outpatient (BNVA) | payer OTHER, MEDICAID, SELFPAY | PROVIDERS: PCP Nurse Practitioner Family; Visit Provider Internal Medicine | DX: E27.8 Other specified disorders of adrenal gland (principal); H05.20 Unspecified exophthalmos; I10 Essential (primary) hypertension; E24.9 Cushing's syndrome, unspecified | CPT/HCPCS: 99214 ==

== ENCOUNTER → 2025-06-01 10:29 | Outpatient (BNVA) | payer OTHER, MEDICAID, SELFPAY | PROVIDERS: PCP Nurse Practitioner Family; Visit Provider Dermatology | DX: B07.8 Other viral warts (principal); R20.8 Other disturbances of skin sensation; R23.8 Other skin changes; L53.8 Other specified erythematous conditions; R58 Hemorrhage, not elsewhere classified; L29.89 Other pruritus | CPT/HCPCS: 17110; 99213 ==